=== PATIENT | female | born 1960 | race Caucasian/White ===

== ENCOUNTER → 2016-03-24 | Outpatient (CLI) | payer MEDICARE ==
[2016-03-24 12:29] LABS: Appearance,Urine Clear (Clear); Basophils # (A) 0.1 k/uL (0-0.2); Basophils % (A) 1 %; Bilirubin,Urine Negative (Negative); CH 31.7; CHCM 35.2; Eosinophils # (A) 0.2 k/uL (0-0.7); Eosinophils % (A) 3 %; Glucose,Urine (UA) Negative (Negative); HCT 40.8 % (34.0-46.0); HDW 3.07; HGB 13.9 gm/dL (11.4-16.0); Ketones,Urine Negative (Negative); Leukocyte Esterase,Urine Negative (Negative); Luc # (Auto) 0.08; Luc % (Auto) 1; Lymphocytes # (A) 0.5 k/uL (1.0-4.8); Lymphocytes % (A) 7 %; MCH 30.9 pg (25.0-35.0); MCHC 34.1 g/dL (31.0-37.0); MCV 90.7 fL (80.0-100.0); Mean Platelet Volume 7.1; Monocytes # (A) 0.4 k/uL (0-1.0); Monocytes % (A) 6 %; Neutrophils # (A) 6.1 k/uL (1.3-7.7); Neutrophils % (A) 83 %; Nitrite,Urine Negative (Negative); Protein,Urine Negative (Negative); RDW 13.9 % (11.5-15.5); Specific Gravity,Urine 1.015 (1.001-1.035); UA Billing (MACRO vs. MICRO) CHEM; Urobilinogen,Urine <2.0 mg/dL (<2.0); WBC 7.4 k/uL (3.8-10.6); WBC (Perox) 7.73
== END | disposition home or self-care (01) ==
LOC: LABWHC1 11:33
PROVIDERS: ATTEND Psychiatry & Neurology Neurology
DX: G35 Multiple sclerosis (principal)
CPT/HCPCS: 36415; 81003; 85025; 87086

== ENCOUNTER → 2018-05-22 | Outpatient (CLI) | payer MEDICARE ==
[2018-05-22 11:17] VITALS: BP 152/84; PULSE 59; RESP 18; TEMP 98.4; BMI 47.5
--- NOTE | 2018-05-22 12:07 | P.GSHP ---
History of Present Illness H&P Date: 05/22/18 Chief Complaint: atypia on breast core biopsy Chantel is a 57-year-old white female who presents for breast evaluation. She underwent a bilateral mammogram in November 2017. At that time it was recommended that breast ultrasound be performed, his was done on 02-05-18. At that time she was recommended to undergo a left breast core biopsy of lesion at 4:00, and the evaluation of the area at 12:00 at which time it will be determined if she needed a biopsy of this site as well. The patient also was recommended to undergo a 6 month right breast diagnostic mammogram and ultrasound to evaluate a 12:00 region in the right breast. Core biopsy was performed with the 4:00 region in the left breast which revealed focal flat epithelial atypia. The area at 12:00 was not readdressed. This was the patient's first time to have a 3-D mammogram. She has not felt anything of concern in her breast. She denies any nipple discharge or skin changes. The patient has no complaints of any pain in her breast. The patient recently Cologuard test done which was positive for trace amounts of blood and she is having a colonoscopy done in the near future. Family history: 1. Mother: Breast cancer bilateral 2. father: prostate cancer 3. paternal uncle: cancer ? type Hormonal History: menarche: 11 : none, hysterctomy at 35 done for enlarged uterus, did not take ovaries menopause: hysterectomy at 35 BCP: noen hormones: none Past Surgical History 1. left ankel 2. hysterectoy 3. gallbaldder Past Medical History: 1. multiple sclerosis 2. HTN Social History: smoke: 1 PPD for 20 years stopped 10 years ago alcohol: none drugs: CBD oil at night to sleep - Constitutional Comment: hot flashes - EENT Comment: multiple sclerosis dx. 2003 Eyes: bilateral blurred vision Ears: deny: decreased hearing, tinnitus Ears, nose, mouth and throat: Reports headache, Denies sore throat - Breasts Breasts: bilateral: as per HPI - Cardiovascular Cardiovascular: Reports high blood pressure - Respiratory Respiratory: Denies cough, Denies 7 - Gastrointestinal Comment: having colonoscopy tomorrow secondary to + Cologuard test - Genitourinary (Female) Genitourinary: Denies dysuria, Denies hematuria - Menstruation Menstruation: Reports post hysterectomy - Musculoskeletal Comment: multiple sclerosis left sided weakness since - Integumentary Integumentary: Denies pruritus, Denies rash - Neurological Comment: multiple sclerosis, left sided weakness - Psychiatric Psychiatric: Denies anxiety, Denies depression - Endocrine Endocrine: Reports weight change, Denies fatigue - Hematologic/Lymphatic Comment: motrin on a regular basis - Allergic/Immunologic Comment: none Past Medical History History of Any Multi-Drug Resistant Organisms: None Reported Smoking Status: Never smoker Medications and Allergies Home Medications Medication Instructions Recorded Confirmed Type Ergocalciferol [Vitamin D2] 50,000 unit PO Q7D 12/31/14 01/02/15 History Ibuprofen [Motrin] 800 mg PO BID 12/31/14 01/02/15 History Ranitidine HCl [Zantac] 150 mg PO HS 12/31/14 01/02/15 History traMADol HCl [Ultram] 50 mg PO Q6H PRN 12/31/14 01/02/15 History Alendronate Sodium [Fosamax] 70 mg PO 05/22/18 History Ascorbic Acid [Vitamin C with Renee 500 mg PO 05/22/18 History Hips] Baclofen 10 mg PO TID 05/22/18 05/22/18 History Calcium Citrate 250 mg PO 05/22/18 History Cinnamon Bark [Cinnamon] 500 mg PO 05/22/18 History Dimethyl Fumarate [Tecfidera] 120 mg PO 05/22/18 History Gabapentin [Neurontin] 100 mg PO 05/22/18 History Inulin/Chromium Picolinate [Fiber 1 each PO 05/22/18 History Gummies Chew] Loratadine 10 mg PO 05/22/18 History Meclizine [Antivert] 12.5 mg PO 05/22/18 History Metoprolol Tartrate [Lopressor] 25 mg PO BID 05/22/18 05/22/18 History Modafinil [Provigil] 200 mg PO DAILY 05/22/18 05/22/18 History Nystatin 100,000 Unit/gm Oint 1 applic TOPICAL BID 05/22/18 05/22/18 History [Mycostatin Oint] Triamcinolone 0.5% Cream [Kenalog 1 applic TOPICAL BID 05/22/18 05/22/18 History 0.5% Cream] Wheat Dextrin [Benefiber] 1 each PO 05/22/18 History Allergies Allergy/AdvReac Type Severity Reaction Status Date / Time No Known Allergies Allergy Verified 05/22/18 11:17 Surgical - Exam Vital Signs Temp Pulse Resp BP Pulse Ox 98.4 F 59 L 18 152/84 98 05/22/18 11:10 05/22/18 11:10 05/22/18 11:10 05/22/18 11:10 05/22/18 11:10 BMI 47.6 - General obese - Eyes normal ocular movement - ENT no hearing loss, no congestion - Neck no masses, trachea midline - Respiratory normal respiratory effort, clear to auscultation - Cardiovascular Rhythm: regular Heart Sounds: normal: S1, S2 - Abdomen Abdomen: soft, non tender, no guarding, no rigid, no rebound - Integumentary normal turgor - Neurologic no disoriented, no combative - Musculoskeletal normal gait, normal posture - Psychiatric oriented to time, oriented to person, oriented to place, speech is normal, memory intact breast exam: right breast: Examination reveals fibrocystic changes no dominant masses or nodules of concern Right axilla: No adenopathy of concern Left breast: Examination reveals fibrocystic changes no dominant masses or nodules of concern Left axilla: No adenopathy of concern Results mammogram and ultrasound results and films reviewed with radiology Assessment and Plan Assessment: Impression: 1. Ultrasound-guided core biopsy 4:00 lesion in the left breast epithelial atypia requiring needle localization and excisional biopsy 2. Ultrasound area of question and 12:00 as well as 9 and 10:00 in the left breast requiring repeat left breast ultrasound to ascertain whether a additional biopsy "should be done prior to open surgical biopsy 3. Dense right breast for which a repeat right breast mammogram and ultrasound recommended in 6 months time from that film 4. Hypertension 5. Multiple sclerosis resulting in left-sided weakness and difficulty with ambulation Plan: 1. Repeat left breast ultrasound to evaluate if any additional areas require core biopsy prior to needle local excisional biopsy of area of atypia 4:00 2. Repeat right breast mammogram and ultrasound to be done in July 2018 3. Medical management of medical conditions CC: Dr. Salvador
--- NOTE | 2018-05-22 13:41 | USB ---
Reason for exam: clinical finding. US Breast LT Left complete breast ultrasound includes all four quadrants, the retroareolar region and axilla. Finding demonstrates no cystic or solid lesion seen. These results were verbally communicated with the patient and result sheet given to the patient on 05/22/18. ASSESSMENT: Negative, BI-RAD 1 RECOMMENDATION: Surgical consultation of the left breast. (4 o'clock biopsy lesion with atypia) PRELIMINARY REPORT CALLED AND FAXED TO DR. PEOPLES ON 05/22/18.
== END | disposition home or self-care (01) ==
LOC: WWCWWP 10:58
PROVIDERS: ATTEND Surgery
DX: R92.8 Other abnormal and inconclusive findings on diagnostic imaging of breast (principal)

== ENCOUNTER → 2018-06-30 | Outpatient (CLI) | payer MEDICARE ==
--- NOTE | 2018-06-30 13:11 | MM ---
Reason for exam: additional evaluation requested from prior study. MG Follow Up LT No Charge CC and ML view(s) were taken of the left breast. The breast tissue is heterogeneously dense. This may lower the sensitivity of mammography. Grouped calcifications 4 o'clock posteriorly, new from 10/02/16. They are increasing from 2018, magnifications views recommended. Microclip at 5 o'clock peripheral in location at the site of biopsy proven atypia. ASSESSMENT: Incomplete: need additional imaging evaluation, BI-RAD 0 RECOMMENDATION: Special view mammogram of the left breast.
--- NOTE | 2018-07-01 08:08 | MM ---
Reason for exam: follow-up at short interval from prior study. History: Patient is postmenopausal. Family history of breast cancer in mother at age 60. Benign stereotactic core biopsy of the right breast, 2018. Benign ultrasound-guided core biopsy of the left breast, 2018. Taking other hormone for 3 months. Physical Findings: Nurse did not find any significant physical abnormalities on exam. MG 3D Diag Mammo W/Cad RT CC, MLO, and LM view(s) were taken of the right breast. Radiologist: Sagrraio Cortes M.D. Radiologist Prior study comparison: October 02, 2016, mammogram. The breast tissue is heterogeneously dense. This may lower the sensitivity of mammography. Previous mammotome biopsy in the right breast. Elongated nodularity just medial to the retroareolar plane shows some increasing coarse calcifications, possible calcifying fibroadenoma. Ultrasound recommended. These results were verbally communicated with the patient and result sheet given to the patient on 06/30/18. ASSESSMENT: Incomplete: need additional imaging evaluation, BI-RAD 0 RECOMMENDATION: Ultrasound of the right breast. INSERTED BY THE INSPECTOR AUTOMATIC TYPEWRITER: (In addition to the previous findings the bilateral calcifications and left upper outer quadrant posterior depth mass that were described warrant biopsy. This was discussed with the patient at the time of ultrasound biopsy and with Dr. Cunningham who also discussed this with the patient. Alternatively 4 site needle localization could be done.) MTDD
--- NOTE | 2018-07-01 08:11 | USB ---
Reason for exam: additional evaluation requested from abnormal screening. History: Patient is postmenopausal. Family history of breast cancer in mother at age 60. Benign stereotactic core biopsy of the right breast, 2018. Benign ultrasound-guided core biopsy of the left breast, 2018. Taking other hormone for 3 months. US Breast RT Right complete breast ultrasound includes all four quadrants, the retroareolar region and axilla. Finding demonstrates a 0.4 x 0.4 x 0.2cm oval, cystic lesion at 12 o'clock, a 0.4 x 0.3 x 0.2cm oval, cystic lesion at 1 o'clock and a 0.7 x 0.4 x 0.2cm solid lesion at 7 o'clock elonged, may represent a lymph node, but given the atypia on the other side, biopsy recommended. May correspond to the mammographic finding. Correlate after clip placement. These results were verbally communicated with the patient and result sheet given to the patient on 06/30/18. ASSESSMENT: Suspicious, BI-RAD 4 RECOMMENDATION: Ultrasound core biopsy of the right breast. Called with mammographic findings and has scheduled an appointment for the patient for 07/04/18 at 12:[address] Cunningham. Biopsy scheduled for 07/01/18 at 8:00. PRELIMINARY REPORT CALLED AND FAXED TO DR. CUNNINGHAM ON 06/30/18. [facility]
== END | disposition home or self-care (01) ==
LOC: RADMAMWWP 09:12
PROVIDERS: ATTEND Surgery
DX: R92.8 Other abnormal and inconclusive findings on diagnostic imaging of breast (principal)
CPT/HCPCS: 77065; 76641; G0279; 77061

== ENCOUNTER → 2018-07-01 | Day surgery (SDC) | payer MEDICARE ==
[2018-07-01 07:40] VITALS: RESP 16; TEMP 97.7; BMI 104.9
[2018-07-01 10:26] VITALS: BP 145/83; PULSE 61
--- NOTE | 2018-07-01 11:29 | MM ---
Reason for exam: additional evaluation requested from abnormal screening. Last mammogram was performed less than 1 month ago. History: Patient is postmenopausal. Family history of breast cancer in mother at age 60. Benign stereotactic core biopsy of the right breast, 2018. Benign ultrasound-guided core biopsy of the left breast, 2018. Taking other hormone for 3 months. MG Diagnostic Mammo RT Wo CAD CC and LM view(s) were taken of the right breast. Prior study comparison: June 30, 2018, left breast MG follow up LT no charge. June 30, 2018, right breast MG 3d diag mammo w/cad RT. The breast tissue is heterogeneously dense. This may lower the sensitivity of mammography. There are presistent lower inner quadrant middle depth calcifications associated with a mass, increased from priors. Ribbon biopsy marker now noted, post biopsy. ASSESSMENT: Suspicious, BI-RAD 4 RECOMMENDATION: Stereotactic core biopsy of both breasts. (x 3, one on the right, two on the left)
--- NOTE | 2018-07-02 08:44 | USB ---
EXAMINATION TYPE: US biopsy breast VAD RT, MG diagnostic mammo RT wo CAD DATE OF EXAM: 07/01/2018 CLINICAL HISTORY: R92.8 Abnormal Mammogram. TECHNIQUE: Ultrasound guided core biopsy of right breast. COMPARISON: In department exams an outside exams dating back to 02/05/2018 FINDINGS: The procedure of ultrasound guided core biopsy was explained to the patient. Benefits, alternatives, and risks were discussed. An informed consent was then obtained. Preprocedural timeout was performed. The patient was placed in supine positioning for imaging and for the procedure. The overlying skin was prepped and draped in usual sterile fashion. 10 cc of 1% lidocaine buffered with bicarbonate was used as anesthetic into the skin and subcutaneous tissue up to 0.7 x 0.4 x 0.2 cm solid mass at the 7:00 position, possibly an intramammary lymph node. Under ultrasound guidance, a 12-gauge vacuum assisted biopsy gun device was used to obtain 4 core samples. Following this, a ribbon-shaped biopsy marker was left directly adjacent to the mass. The patient tolerated the procedure well without any immediate complication. The patient was kept in the radiology department for short stay after the procedure and then discharged home in stable condition. IMPRESSION: Successful, uncomplicated ultrasound guided core biopsy of the 0.7 x 0.4 x 0.2 cm solid mass at the 7:00 position in the right breast, full pathology results to follow. Additionally discussion was had with the patient directly regarding the patient's diagnostic mammogram of the same date prior to the ultrasound guided biopsy and also with Dr. Chavo Jasso who communicated the results and recommendations. Again recommendation is for either 3 site bilateral stereotactic guided biopsy (2 in the left and one on the right regarding bilateral calcifications and left breast posterior depth mass) versus 4 site needle localization. Pathology Results: Benign RIGHT BREAST, NEEDLE CORE BIOPSIES: Fibrocystic spectrum changes and pseudoangiomatous hyperplasia. Recommendation Follow up ultrasound of the right breast in 6 months. ROXANA
== END | disposition home or self-care (01) ==
LOC: RADUSWWP 06:34
PROVIDERS: ATTEND Surgery
DX: N62 Hypertrophy of breast (principal); Z80.3 Family history of malignant neoplasm of breast; Z78.0 Asymptomatic menopausal state
CPT/HCPCS: 88305; 77065; 19083; A4648; J2001

== ENCOUNTER → 2018-07-01 | Outpatient (CLI) | payer MEDICARE ==
--- NOTE | 2018-07-01 10:09 | P.PN ---
Progress Note - Text Progress Note Date: 07/01/18 Further radiographic workup on Chantel revealed microcalcifications of concern in both breast as well as posterior on the left an additional lesion which is BIRADS 5. The patient underwent an ultrasound core biopsy of the lesion on the right breast today. It is recommended she undergo stereo biopsy of both areas of microcalcification in both the right and left breasts. She has multiple sclerosis and is unable to ambulate and get onto the stereotactic table here. It was therefore recommended that the stereotactic biopsy for microcalcifications be performed at [facility]. We are trying to help her with transportation at this time. The posterior lesion in the left breast is felt to be too far posterior to do stereotactically and was not seen on ultrasound. It is therefore recommended that needle localization of this area be performed. Impression: 1. Epithelial atypia left breast 2. Posterior lesion on mammogram suspicious BIRADS 5 needs needle local and excisional biopsy 3. Bilateral microcalcifications stereotactic core biopsy of these areas 4. Ultrasound core biopsy - Right breast awaiting results Plan: 1. Patient to follow-up after stereotactic core biopsy of both right and left breast lesion 2. Needle local excisional biopsy of 2 areas in the left breast that which is posterior as well as the area of epithelial atypia 3. Await results of bilateral breast stereotactic core biopsies and ultrasound core biopsy of the right breast CC: Dr. Salvador
--- NOTE | 2018-07-01 11:14 | MM ---
Reason for exam: additional evaluation requested from abnormal screening. Last mammogram was performed less than 1 month ago. History: Patient is postmenopausal. Family history of breast cancer in mother at age 60. Benign stereotactic core biopsy of the right breast, 2018. Benign ultrasound-guided core biopsy of the left breast, 2018. Taking other hormone for 3 months. MG Work Up Mamm w CAD LT CC with magnification and ML with magnification view(s) were taken of the left breast. Prior study comparison: June 30, 2018, left breast MG follow up LT no charge. The breast tissue is heterogeneously dense. This may lower the sensitivity of mammography. There is a 7mm group of calcifications in the left lower outer quadrant at posterior depth that are coarse heterogenous, stereotactic biopsy recommended. Also seen on CC magnification and MLO is a 8mm spiculated mass in the upper outer quadrant at posterior depth 2cm posterior to the calcifications. Ultrasound will be performed. Increasing right upper inner quadrant calcifications with associated 9mm mass, magnification views. These results were verbally communicated with the patient and result sheet given to the patient on 07/01/18. ASSESSMENT: Incomplete: need additional imaging evaluation, BI-RAD 0 RECOMMENDATION: Special view mammogram. (right magnification views) Ultrasound of the left breast. (upper outer quadrant)
--- NOTE | 2018-07-01 11:17 | USB ---
Reason for exam: additional evaluation requested from abnormal screening. History: Patient is postmenopausal. Family history of breast cancer in mother at age 60. Benign stereotactic core biopsy of the right breast, 2018. Benign ultrasound-guided core biopsy of the left breast, 2018. Taking other hormone for 3 months. US Breast Workup Limited LT Left limited breast ultrasound including focal area of concern, retroareolar and axilla demonstrates no convincing correlate to the mammographic mass. Stereo biopsy recommended on the left for calcifications and mass (2 sites) and for the calcifications of the right. These results were verbally communicated with the patient and result sheet given to the patient on 07/01/18. ASSESSMENT: Suspicious, BI-RAD 4 RECOMMENDATION: Stereotactic core biopsy of both breasts.
== END | disposition home or self-care (01) ==
LOC: RADMAMWWP 07:11
PROVIDERS: ATTEND Surgery
DX: R92.8 Other abnormal and inconclusive findings on diagnostic imaging of breast (principal)
CPT/HCPCS: 77065

== ENCOUNTER 2018-08-05 07:45 | Day surgery (SDC) | payer MEDICARE ==
[2018-07-31 10:39] VITALS: BMI 47.5
[~2018-08-05 07:45] MED LIST: HEPARIN SODIUM,PORCINE 5,000 UNIT/ML 1 ML VIAL SQ ONE; Pre Op ABX Message 1 EACH MISC MISCELLANE ONE
[2018-08-05] MEDS ORDERED: ALPRAZolam 0.5 MG TAB PO STA (08:17)
[2018-08-05] MEDS ORDERED: LIDOCAINE 1% INJ 10MG/ML (20 ML MDV) SQ ONE ×2 (09:03→10:21)
[2018-08-05] MEDS ORDERED: DEXAMETHASONE SOD PHOSPHATE 10 MG/ML 1 ML VIAL IV ONE (09:46)
[2018-08-05] MEDS ORDERED: LACTATED RINGERS 1,000 ML IV SCH (09:46)
[2018-08-05] MEDS ORDERED: LIDOCAINE 1% 20 ML VIAL (10MG/ML) FOR IV START INTRADERMA PRN (09:46)
[2018-08-05] MEDS ORDERED: SCOPOLAMINE 1.5MG/72HR PATCH TRANSDERM ONE (09:46)
[2018-08-05] MEDS ORDERED: MIDAZOLAM 2 MG/2 ML VIAL IV PRN (09:46)
[2018-08-05] MEDS ORDERED: ONDANSETRON 4 MG/2 ML VIAL IVP ONE (09:46)
[2018-08-05] MEDS ORDERED: HEPARIN SODIUM,PORCINE 5,000 UNIT/ML 1 ML VIAL SQ ONE (09:49)
[2018-08-05] MEDS ORDERED: LIDOCAINE 1% INJ 10MG/ML (20 ML MDV) ONE (11:14)
[2018-08-05] MEDS ORDERED: PROPOFOL 10 MG/ML 20 ML VIAL IV ONE (11:14)
[2018-08-05] MEDS ORDERED: HYDROmorphone (PF) 1 MG/ML ONE (11:14)
[2018-08-05] MEDS ORDERED: KETAMINE 10 MG/ML 20 ML VIAL ONE (11:14)
[2018-08-05] MEDS ORDERED: MIDAZOLAM 2 MG/2 ML VIAL ONE (11:14)
[2018-08-05] MEDS ORDERED: fentaNYL (PF) 50 MCG/ML 2 ML AMP ONE (11:14)
[2018-08-05] MEDS ORDERED: LACTATED RINGERS 1,000 ML IV ONE (13:47)
--- NOTE | 2018-08-05 13:56 | MM ---
EXAMINATION TYPE: MG pre op needle loc LT, MG pre op needle loc RT, MG pre op needle loc LT, MG pre op needle loc LT, MG surgical specimen LT, MG surgical specimen LT, MG surgical specimen RT, MG surgical specimen LT DATE OF EXAM: 08/05/2018 COMPARISON: Prior mammograms July 01, 2018 and older mammograms. CLINICAL HISTORY: History of biopsy proven high risk lesion or atypia left breast with new abnormal mammogram TECHNIQUE: Needle localization with wire placement and surgical excision of single area of concern in the right breast. Needle localization with wire placement and surgical excision of 3 areas of concern in the left breast. FINDINGS: The procedure of needle localization with wire placement and than surgical excision was explained to the patient. Benefits, alternatives, and risks were discussed. An informed consent was then obtained. Patient has history of multiple sclerosis and because of this inferior approach could not be utilized. The overlying skin was prepped and draped in usual sterile fashion. Lidocaine was used as anesthetic into the skin and subcutaneous tissue up to the level of area of concern. A 7 cm needle was used on the right side via medial approach. Subsequent 90 degrees mammogram show the needle to be in satisfactory position relative to the targeted area. At this point, wire was placed and the needle was withdrawn. The wire was fixed to patient's skin. Images were marked for surgeon. Left breast is then targeted. The overlying skin was prepped and draped in usual sterile fashion. Lidocaine was used as anesthetic into the skin and subcutaneous tissue up to the level of area of concern. A 7 cm needle was first utilized for 2 lesions on the left side via lateral approach. These needles were not long enough. At this point, 9 cm lesions were used from cranial approach. Wires were satisfactory relative to areas of concern, anterior needle group of calcifications seen posterior needle focal density. At this point, wire was placed and the needle was withdrawn. The wire was fixed to patient's skin. Images were marked for surgeon. Case is reviewed with surgeon. Biopsy clip of atypia noted by surgeon also needs to be localized. Patient returns for this procedure. Lidocaine is used as anesthetic into the skin and subcutaneous tissue. A 7 cm needle was utilized via lateral approach. After satisfactory positioning needle is withdrawn and wire is in place. At this point, wire was placed and the needle was withdrawn. The wire was fixed to patient's skin. Images were again marked for surgeon. Case is reviewed prior to surgical excision. The patient tolerated the procedure well without any immediate complication. The patient was kept in the radiology department for short stay after the procedure and then taken to surgery for surgical excision. Targeted nodule with calcification and wire are identified in right sided specimen mammogram. Targeted calcifications, biopsy clip, and nodule along with wires are identified in left-sided specimen mammograms. The patient was kept in hospital for short stay after the procedure and then discharged home in stable condition. IMPRESSION: Successful, uncomplicated needle localization with wire placement and surgical excision of areas of concern in the bilateral breasts, full pathology results to follow. Low to intermediate index of suspicion right breast lesion. Low index of suspicion left breast calcification. Low to intermediate index of suspicion left breast biopsy clip. Intermediate index of suspicion left breast lesion. Pathology Results: Malignant A. RIGHT BREAST WITH MARGINS, LUMPECTOMY: Lobular neoplasia (ALH/LGLCIS) in a background of fibrocystic and proliferative breast lesions (usual type duct hyperplasia with intraductal papillomatosis). Intraductal mineralizations are identified. B. INFERIOR LEFT BREAST LESION WITH MARGINS, LUMPECTOMY: Prior breast biopsy cavity surrounded by fibrocystic spectrum changes including sclerosing adenosis and mild intraductal hyperplasia. Intraductal mineralizations are identified focally. C. POSTERIOR LEFT BREAST LESION, NEEDLE LOCALIZATION BIOPSY: 11 x 10 x 8 mm intermediate grade (Adryan Grade: II of III) infiltrating duct carcinoma, 3.5 mm away from the nearest blue inked margin of excision. See Surgical Pathology Cancer Case Summary. ADDENDUM REPORT C. POSTERIOR LEFT BREAST LESION, NEEDLE LOCALIZATION BIOPSY: Infiltrating ductal carcinoma, intermediate grade. Recommendation Surgical consult of both breasts. Left breast posterior upper outer quadrant: surgical excision/medical therapy. Left lower outer quadrant prior biopsy: cavity negative. Right breast: surgical management, can be followed with annual MRI. BOOMD
--- NOTE | 2018-08-05 14:02 | P.OP ---
Date of Procedure: 08/05/18 Preoperative Diagnosis: Epithelial atypia left breast, nodule of concern left breast, microcalcifications of concern in the left breast, microcalcifications of concern right breast Postoperative Diagnosis: Same Procedure(s) Performed: Localization 3 left breast, albuterol localization 1 right breast, excisional biopsy in operating room Anesthesia: PATRICK Surgeon: Ai Cunningham Estimated Blood Loss (ml): 25 IV fluids (ml): 900 Condition: other (Breast tissue was insufflated right breast, 3 sites left breast) Disposition: PACU Indications for Procedure: The patient is a 49-year-old white female with multiple sclerosis. She had a core biopsy of area of concern in the left breast which revealed epithelial atypia. Further evaluation of the radiographs revealed 2 additional areas in the left breast and one in the right breast of concern. The patient is unable to be brought onto a stereotactic core biopsy table, and she was unable to have transportation to an upright stereotactic core table. The options therefore were needle localization and excision in the operating room. Was necessary for the patient from the area of a papillary atypia excised and therefore she opted to have all the areas excised in the operating room. Patient chose to have this performed. Operative Findings: Microcalcifications right and left breasts, nodular area left breast Description of Procedure: The patient initially went to the radiology department microcalcifications of concern were localized in the right breast. The second area of microcalcification was localized in the left breast as well as a nodule. Also the clip which of atypia had been biopsied with cold biopsy was localized. Following localization the patient was brought to the operating room. The patient was placed on the operating table and following induction of general anesthesia the right and left breast were prepped. The right breast was approached initially. A circumareolar incision was made and carried down to the breast tissue. This was dissected to the area of the shaft of the needle and the tissue was grasped using an Allis clamp. Surrounding tissue was excised. Was evaluated for hemostasis. Titanium clips were placed. The deep tissues were closed using 3-0 Vicryl suture. The specimen was painted for orientation. Radiograph of the specimen revealed that the area of concern had been removed. The skin was closed using 4-0 Monocryl. Gloves and instruments were changed to approach the left side. The more anterior clip was approached initially. Circumareolar incision was made and carried down to the breast tissue. Shaft of the needle was identified and grasped using an Allis clamp. Surrounding tissue was excised. The specimen was painted for orientation. Radiograph the specimen revealed the area of concern had been removed. The deep tissues were closed with a 3-0 Vicryl suture after placement of titanium clips. The skin was closed using a 4-0 Monocryl. The posterior lesions were approached through the same incision, etc. to the circumareolar incision. Circumflex coronary incision was performed between the 2 needles. The tissue was grasped using an Allis clamp. Surrounding tissue was excised using electrocautery device as well as the Harmonic scalpel. Dissection. This was actually down into the axillary tissue. After the specimen had been removed was painted for orientation. X-ray revealed that the area of concern about removed. Was evaluated for hemostasis. Deep tissues were closed using 3-0 Vicryl suture after titanium clips were then placed. The skin was closed using a 4-0 Monocryl. Patient tolerated the procedure in stable condition. Please note that the lesion was removed from the right breast with microcalcifications, lesions were removed from the left breast they included the following #1 clip which had had an area of epithelial atypia #2. Microcalcifications number through the posterior nodular area. It should be noted that the posterior lesions of the left breast actually extended into the axillary tissue. The patient tolerated the procedure well all instrument and sponge counts were correct at the end of the case.
--- NOTE | 2018-08-05 14:03 | P.DS ---
Providers Attending physician: Ai Cunningham Primary care physician: Eduardo Salvador Plan - Discharge Summary Discharge Rx Participant: Yes New Discharge Prescriptions: No Action Ergocalciferol [Vitamin D2] 50,000 unit PO PECK traMADol HCl [Ultram] 50 mg PO TID PRN PRN Reason: Pain Ranitidine HCl [Zantac] 150 mg PO HS Ibuprofen [Motrin] 800 mg PO TID Baclofen 10 mg PO TID Nystatin 100,000 Unit/gm Oint [Mycostatin Oint] 1 applic TOPICAL BID PRN PRN Reason: Rash Metoprolol Tartrate [Lopressor] 25 mg PO BID Wheat Dextrin [Benefiber] 1 each PO DAILY Gabapentin [Neurontin] 100 mg PO QID Cinnamon Bark [Cinnamon] 500 mg PO DAILY Calcium Citrate 500 mg PO DAILY Ascorbic Acid [Vitamin C with Renee Hips] 500 mg PO DAILY Alendronate Sodium [Fosamax] 70 mg PO PECK Multivitamin [Multivitamins Adult Gummies] 2 each PO DAILY Fish Oil(Dose Unknown) 1 cap PO DAILY Cannabidiol (Cbd) Extract [Epidiolex] 6 drops PO HS PRN PRN Reason: Pain Modafinil [Provigil] 200 mg PO DAILY Dimethyl Fumarate [Tecfidera] 120 mg PO BID Triamcinolone 0.5% Cream [Kenalog 0.5% Cream] 1 applic TOPICAL DAILY PRN PRN Reason: Rash Meclizine HCl 12.5 mg PO DAILY PRN PRN Reason: Vertigo Pantoprazole Sodium [Protonix] 20 mg PO DAILY Discharge Medication List Ergocalciferol [Vitamin D2] 50,000 unit PO PECK 12/31/14 [History] Ibuprofen [Motrin] 800 mg PO TID 12/31/14 [History] Ranitidine HCl [Zantac] 150 mg PO HS 12/31/14 [History] traMADol HCl [Ultram] 50 mg PO TID PRN 12/31/14 [History] Ascorbic Acid [Vitamin C with Renee Hips] 500 mg PO DAILY 05/22/18 [History] Baclofen 10 mg PO TID 05/22/18 [History] Calcium Citrate 500 mg PO DAILY 05/22/18 [History] Cinnamon Bark [Cinnamon] 500 mg PO DAILY 05/22/18 [History] Gabapentin [Neurontin] 100 mg PO QID 05/22/18 [History] Metoprolol Tartrate [Lopressor] 25 mg PO BID 05/22/18 [History] Nystatin 100,000 Unit/gm Oint [Mycostatin Oint] 1 applic TOPICAL BID PRN 05/22/18 [History] Wheat Dextrin [Benefiber] 1 each PO DAILY 05/22/18 [History] Alendronate Sodium [Fosamax] 70 mg PO PECK 06/26/18 [History] Cannabidiol (Cbd) Extract [Epidiolex] 6 drops PO HS PRN 06/26/18 [History] Fish Oil(Dose Unknown) 1 cap PO DAILY 06/26/18 [History] Multivitamin [Multivitamins Adult Gummies] 2 each PO DAILY 06/26/18 [History] Dimethyl Fumarate [Tecfidera] 120 mg PO BID 07/31/18 [History] Meclizine HCl 12.5 mg PO DAILY PRN 07/31/18 [History] Modafinil [Provigil] 200 mg PO DAILY 07/31/18 [History] Pantoprazole Sodium [Protonix] 20 mg PO DAILY 07/31/18 [History] Triamcinolone 0.5% Cream [Kenalog 0.5% Cream] 1 applic TOPICAL DAILY PRN 07/31/18 [History] Follow up Appointment(s)/Referral(s): Ai Cunningham MD [STAFF PHYSICIAN] - 1 Week Activity/Diet/Wound Care/Special Instructions: may shower after 48 hours wear bra at all times if not showering Discharge Disposition: HOME SELF-CARE
[2018-08-05 14:14] VITALS: TEMP 97
[2018-08-05 14:19] VITALS: RESP 16
[2018-08-05] MEDS ORDERED: traMADol 50 MG TAB PO ONE (15:32)
[2018-08-05 15:42] VITALS: PULSE 87
[2018-08-05 15:57] VITALS: BP 126/78
== END 2018-08-05 16:22 | disposition home or self-care (01) ==
LOC: OR 07:45
PROVIDERS: ATTEND Surgery
DX: C50.912 Malignant neoplasm of unspecified site of left female breast (principal); D24.1 Benign neoplasm of right breast; N60.22 Fibroadenosis of left breast; N60.11 Diffuse cystic mastopathy of right breast; N60.12 Diffuse cystic mastopathy of left breast; Z17.0 Estrogen receptor positive status [ER+]; G35 Multiple sclerosis; I10 Essential (primary) hypertension; K21.9 Gastro-esophageal reflux disease without esophagitis; M79.7 Fibromyalgia; R00.2 Palpitations; Z87.891 Personal history of nicotine dependence; Z99.3 Dependence on wheelchair; Z79.1 Long term (current) use of non-steroidal anti-inflammatories (NSAID); Z79.891 Long term (current) use of opiate analgesic; Z79.899 Other long term (current) drug therapy; Z90.710 Acquired absence of both cervix and uterus; Z90.49 Acquired absence of other specified parts of digestive tract; Z80.3 Family history of malignant neoplasm of breast; Z80.42 Family history of malignant neoplasm of prostate
CPT/HCPCS: 19125; 19126; 19281; 19282; 88342; 88307; 88341; 76098 ×2; J2250; J1644; J1100; J2405; J2001; J3010; J1170; J2704

== ENCOUNTER → 2018-08-14 | Outpatient (CLI) | payer MEDICARE ==
[2018-08-14 12:51] VITALS: BP 141/82; PULSE 73; RESP 20; TEMP 98.3; BMI 45.4
--- NOTE | 2018-08-14 14:22 | P.GSHP ---
History of Present Illness H&P Date: 08/14/18 Chief Complaint: Left breast cancer The patient is a 57-year-old white female who initially presented for breast evaluation secondary to a radiographic abnormality in the left breast. Core biopsy was obtained and revealed epithelial atypia. However further workup revealed a posterior BIRADS 5 lesion in the left breast which was not seen on ultrasound, any areas of microcalcification of both breasts which were of concern. The patient subsequently underwent a bilateral needle localization breast biopsy. There were 3 areas biopsied in the left breast and one area in the right breast. The reason for operative biopsy was secondary to the fact that the patient has multiple sclerosis was unable to lay on the stereotactic biopsy table. We will tentatively schedule this for her at [facility] however she was unable to obtain transportation. She therefore opted for needle localization and excisional biopsy of the areas of concern in the left breast and one area in the right breast. 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 The second area in the left breast has fibrocystic changes. The area of malignancy was completely exc ised. The patient however is not a candidate for radiation therapy secondary to her MS and difficulty in transportation and being positioned for radiation to be performed. She was given the option of meeting with the radiation oncologist to discuss this however she did not wish to consider radiation therapy. Family history: 1. Medical: Breast cancer bilaterally 2. Father: Prostate cancer 2. Paternal uncle colon cancer uncertain of the type Hormonal history: Menarche: 11 Pregnancies: None, hysterectomy at 35 for enlarged uterus did not take her ovaries Menopause: Hysterectomy at 35 control pills: Negative Hormones: Negative Past surgical history: Left ankle Hysterectomy Cholecystectomy Past medical history: 1. Multiple sclerosis 2. Hypertension Social history: Smoke: Stopped 10 years ago Alcohol: Negative Drugs: CBD at night to sleep - Constitutional Comment: Multiple sclerosis diagnosed in 2002 Hot flashes - EENT Eyes: bilateral blurred vision, denies pain Ears: deny: decreased hearing, tinnitus Ears, nose, mouth and throat: Reports headache - Breasts Breasts: bilateral: as per HPI - Cardiovascular Cardiovascular: Reports high blood pressure - Respiratory Respiratory: Denies cough, Denies 7 - Gastrointestinal Comment: Recent colonoscopy awaiting results - Genitourinary (Female) Genitourinary: Denies dysuria, Denies hematuria - Menstruation Menstruation: Reports post hysterectomy - Musculoskeletal Comment: Multiple sclerosis, left-sided weakness - Integumentary Integumentary: Denies pruritus, Denies rash - Neurological Comment: Multiple sclerosis left-sided weakness - Psychiatric Psychiatric: Denies anxiety, Denies depression - Endocrine Endocrine: Reports weight change, Denies fatigue - Hematologic/Lymphatic Comment: Uses Motrin - Allergic/Immunologic Allergic/Immunologic: Reports as per HPI Past Medical History Past Medical History: Fibromyalgia, GERD/Reflux, Hypertension, Musculoskeletal Disorder Additional Past Medical History / Comment(s): MS, palpitations, History of Any Multi-Drug Resistant Organisms: None Reported Past Surgical History: Cholecystectomy, Hysterectomy, Orthopedic Surgery Additional Past Surgical History / Comment(s): ORIF left ankle, left breast biopsy Past Anesthesia/Blood Transfusion Reactions: No Reported Reaction Past Psychological History: No Psychological Hx Reported Smoking Status: Former smoker Past Alcohol Use History: None Reported Additional Past Alcohol Use History / Comment(s): quit smoking 20 yrs ago, smoked since age 17, 1/2-1 PPD Past Drug Use History: Marijuana Additional Drug Use History / Comment(s): CBD oil - Past Family History Mother Family Medical History: Cancer Additional Family Medical History / Comment(s): breast Father Family Medical History: Cancer Additional Family Medical History / Comment(s): prostate Medications and Allergies Home Medications Medication Instructions Recorded Confirmed Type Ergocalciferol [Vitamin D2] 50,000 unit PO PECK 12/31/14 08/14/18 History Ibuprofen [Motrin] 800 mg PO TID 12/31/14 08/14/18 History Ranitidine HCl [Zantac] 150 mg PO HS 12/31/14 08/14/18 History traMADol HCl [Ultram] 50 mg PO TID PRN 12/31/14 08/14/18 History Ascorbic Acid [Vitamin C with Renee 500 mg PO DAILY 05/22/18 08/14/18 History Hips] Baclofen 10 mg PO TID 05/22/18 08/14/18 History Calcium Citrate 500 mg PO DAILY 05/22/18 08/14/18 History Cinnamon Bark [Cinnamon] 500 mg PO DAILY 05/22/18 08/14/18 History Gabapentin [Neurontin] 100 mg PO QID 05/22/18 08/14/18 History Metoprolol Tartrate [Lopressor] 25 mg PO BID 05/22/18 08/14/18 History Nystatin 100,000 Unit/gm Oint 1 applic TOPICAL BID PRN 05/22/18 08/14/18 History [Mycostatin Oint] Wheat Dextrin [Benefiber] 1 each PO DAILY 05/22/18 08/14/18 History Alendronate Sodium [Fosamax] 70 mg PO PECK 06/26/18 08/14/18 History Cannabidiol (Cbd) Extract 6 drops PO HS PRN 06/26/18 08/14/18 History [Epidiolex] Fish Oil(Dose Unknown) 1 cap PO DAILY 06/26/18 08/14/18 History Multivitamin [Multivitamins Adult 2 each PO DAILY 06/26/18 08/14/18 History Gummies] Dimethyl Fumarate [Tecfidera] 120 mg PO BID 07/31/18 08/14/18 History Meclizine HCl 12.5 mg PO DAILY PRN 07/31/18 08/14/18 History Modafinil [Provigil] 200 mg PO DAILY 07/31/18 08/14/18 History Pantoprazole Sodium [Protonix] 20 mg PO DAILY 07/31/18 08/14/18 History Triamcinolone 0.5% Cream [Kenalog 1 applic TOPICAL DAILY PRN 07/31/18 08/14/18 History 0.5% Cream] Allergies Allergy/AdvReac Type Severity Reaction Status Date / Time No Known Allergies Allergy Verified 08/14/18 12:47 Surgical - Exam Vital Signs Temp Pulse Resp BP Pulse Ox 98.3 F 73 20 141/82 96 08/14/18 12:48 08/14/18 12:48 08/14/18 12:48 08/14/18 12:48 08/14/18 12:48 BMI 45.4 - General obese - Eyes normal ocular movement - ENT no hearing loss, no congestion - Neck no masses, trachea midline - Respiratory Decreased breath sounds at the bases - Cardiovascular Rhythm: regular Heart Sounds: normal: S1, S2 - Abdomen Abdomen: soft, non tender, no guarding, no rigid, no rebound - Integumentary normal turgor - Neurologic no disoriented, no combative - Musculoskeletal Wheelchair bound - Psychiatric oriented to time, oriented to person, oriented to place, speech is normal, memory intact Breast examination Right breast: mild Ecchymosis at site of biopsy, no hematoma or infection Left breast: Mild ecchymosis at site of biopsy no hematoma or infection Results Pathology results reviewed Assessment and Plan Assessment: Impression: 1. Stage IA left breast cancer 2. Lobular carcinoma in situ right breast 3. Family history of breast cancer 4. Multiple sclerosis 5. Hypertension Surgical options were discussed with the patient. Options included sentinel node biopsy, possible axillary node dissection, radiation therapy; mastectomy sentinel node biopsy possible axillary node dissection, +/- reconstruction: Hormonal therapy with no further surgical intervention. The patient wishes to undergo bilateral mastectomy with left breast sentinel node biopsy possible axillary node dissection. She is not interested in reconstruction. She understands the risks and benefits and wishes to proceed. Plan: 1. Discussion with radiation oncology 2. Presentation at tumor board 3. Medical clearance from Dr. Ammon oscar and Dr. Vega 4. Followed by this cleared bilateral mastectomy with left sentinel node biopsy possible axillary node dissection CC: Dr. Salvador
== END ==
LOC: WWCWWP 12:19
PROVIDERS: ATTEND Surgery
DX: Z53.9 Procedure and treatment not carried out, unspecified reason (principal)

== ENCOUNTER 2018-08-26 09:26 | Inpatient (IN) | payer MEDICARE ==
[~2018-08-26 09:26] MED LIST changes: +DEXAMETHASONE SOD PHOSPHATE 10 MG/ML 1 ML VIAL IV ONE; +LACTATED RINGERS 1,000 ML IV SCH; +MIDAZOLAM 2 MG/2 ML VIAL IV PRN; +ONDANSETRON 4 MG/2 ML VIAL IVP ONE; +SCOPOLAMINE 1.5MG/72HR PATCH TRANSDERM ONE
[2018-08-26] MEDS ORDERED: LIDOCAINE 1% 20 ML VIAL (10MG/ML) FOR IV START INTRADERMA ONE (10:39)
--- NOTE | 2018-08-26 12:17 | NM ---
EXAMINATION TYPE: NM sentinel node injection DATE OF EXAM: 08/26/2018 COMPARISON: Exams dating back to 07/01/2018 HISTORY: Left breast cancer TECHNIQUE AND FINDINGS: The procedure of sentinel lymph node injection was explained to the patient. The benefits, alternatives, and risks were discussed. An informed consent was then obtained. Overlying skin is cleaned with sterile alcohol. Following this, 492 uCi [id number] Tilmanocept was inject ed in the upper outer aspect of the left nipple intradermally. The patient tolerated the procedure well without any immediate complication. The patient was kept in the radiology department for short stay after the procedure and then taken to surgery for surgical p rocedure what is presumed intraoperative gamma probe will be used for sentinel lymph node detection. IMPRESSION: Left breast radiotracer injection for sentinel node localization as above.
[2018-08-26] MEDS ORDERED: HEPARIN SODIUM,PORCINE 5,000 UNIT/ML 1 ML VIAL SQ ONE (14:06)
--- NOTE | 2018-08-26 14:07 | P.NAPBC ---
NAPBC Queries - NAPBC Queries Was patient's case review presented at [facility] tumor board? If no, comment.: Yes Was patient's pathology reviewed at [facility]? If no, comment.: Yes Was breast conservation surgery offered? If no, comment.: Yes Was sentinel node biopsy offered? If no, comment.: Yes Was diagnosis confirmed by percutaneous core biopsy? If no, comment.: Yes Is patient mastectomy patient?: Yes Was a preop referral to reconstructive surgeon offered?: Yes Clinical Stage: Stage IA
[2018-08-26] MEDS ORDERED: fentaNYL (PF) 50 MCG/ML 2 ML AMP ONE (14:27)
[2018-08-26] MEDS ORDERED: MIDAZOLAM 2 MG/2 ML VIAL ONE (14:27)
[2018-08-26] MEDS ORDERED: HYDROmorphone (PF) 1 MG/ML ONE (14:27)
[2018-08-26] MEDS ORDERED: ROCURONIUM BROMIDE 10 MG/ML 10 ML VIAL IV ONE (14:27)
[2018-08-26] MEDS ORDERED: PROPOFOL 10 MG/ML 20 ML VIAL IV ONE (14:27)
[2018-08-26] MEDS ORDERED: LIDOCAINE 1% INJ 10MG/ML (20 ML MDV) ONE (14:27)
[2018-08-26] MEDS ORDERED: ONDANSETRON 4 MG/2 ML VIAL IVP PRN (17:43)
[2018-08-26] MEDS ORDERED: NALOXONE 0.4 MG/ML 1 ML VIAL IV PRN (17:43)
--- NOTE | 2018-08-26 17:43 | P.OP ---
Date of Procedure: 08/26/18 Preoperative Diagnosis: Left breast cancer, right breast lobular carcinoma in situ Postoperative Diagnosis: Same Procedure(s) Performed: Left mastectomy, sentinel node biopsy, right mastectomy Anesthesia: PATRICK Surgeon: Ai Cunningham Estimated Blood Loss (ml): 50 IV fluids (ml): 600 Pathology: other (Bilateral breast, left sentinel node) Condition: stable Disposition: floor Indications for Procedure: Left breast invasive ductal carcinoma, right breast lobular carcinoma in situ Operative Findings: Dense breast tissue Description of Procedure: The patient is a 53-year-old white female with multiple sclerosis. She was diagnosed with left breast invasive ductal carcinoma, right breast lobular carcinoma in situ. In addition she has a strong family history of breast cancer. Secondary to the patient's multiple sclerosis is limited mobility. After discussion with the patient, presentation at tumor board, and discussion with her primary care doctor the patient opted for bilateral mastectomy with left sentinel node biopsy. The risks and benefits of the procedure were discussed with the patient and she is scheduled for the procedure. The patient was taken to the operating room and following induction of anesthesia the left breast was approached initially. Superior and inferior skin flaps were developed. The dissection was carried down to the chest wall. We were careful to maintain hemostasis using the electrocautery device as well as the Harmonic scalpel. The breast was dissected from medial to lateral being careful to maintain hemostasis again using electrocautery device, the Harmonic scalpel, and suture ligating any vessels of concern. Dissection was performed down to the area of the axilla. At the area of the axilla the neoprobe was used to identify radioactive lymph node. A second radioactive count of 11,000 was identified. The surrounding background count was minimal. The lymph node was dissected free using the Harmonic scalpel. This was sent for frozen section evaluation. Frozen section was negative for malignancy. This was well irrigated. Powderized Surgicel was placed in the wound. BRAIN drains were placed. The deep tissues were closed using 3-0 Vicryl suture. The drains were secured with 2-0 nylon suture. The skin was closed with 4-0 Monocryl. At this time all instruments and gowns and gloves were changed and the right side was approached. The right breast superior inferior skin flaps were developed. A marking pen was used to outline the area of the flaps. The skin was scored, and using the electrocautery device the incision of the skin was completed. The superior skin flap was developed. We were careful to use of electrocautery device as well as the Harmonic scalpel to maintain hemostasis. This was carried down to the chest wall. The inferior skin flap was developed in similar fashion. The breast was then dissected from medial to lateral being careful to maintain hemostasis using electrocautery device, the Harmonic scalpel, and suture ligating any vessels of concern. Dissection was carried laterally. The parenchyma was divided using the Harmonic scalpel. Following this the wound was irrigated. 2 BRAIN drains were placed. These were secured using nylon suture. Surgicel and a power fashion was placed. The deep tissues were closed using 3-0 Vicryl suture. The skin was closed using 4-0 Monocryl. This BRAIN drains were secured using nylon suture. The patient tolerated the procedure in stable condition. All instrument and sponge counts were correct at the end of the case. Both breasts and the left axillary node were sent to pathology. The patient tolerated the procedure in stable condition.
[2018-08-26] MEDS: HYDROmorphone 0.5 MG/0.5 ML SYRINGE IVP PRN ×2 (18:10→18:25)
[2018-08-26] MEDS ORDERED: LABETALOL SYRINGE 5 MG/ML IVP ONE (18:45)
[2018-08-26] MEDS ORDERED: LACTATED RINGERS 1,000 ML IV ONE ×2 (18:47)
[2018-08-26 20:03] VITALS: BMI 45.3
[2018-08-26] MEDS: DEXTROSE 5%-0.45% NACL 1,000 ML IV SCH (20:29)
[2018-08-26] MEDS: HYDROmorphone 1 MG/ML 1 ML SYRINGE IV PRN (20:32)
[2018-08-26] MEDS: HEPARIN SODIUM,PORCINE 5,000 UNIT/ML 1 ML VIAL SQ SCH (23:24)
[2018-08-27] MEDS: HYDROmorphone 1 MG/ML 1 ML SYRINGE IV PRN (00:06)
[2018-08-27] MEDS: DEXTROSE 5%-0.45% NACL 1,000 ML IV SCH (03:53)
--- NOTE | 2018-08-27 09:40 | P.PN ---
Subjective Progress Note Date: 08/27/18 Patient is postop day one from bilateral mastectomy with left sentinel node biopsy. Postoperatively the patient is doing well, she is tolerating diet without difficulty. She has been unable to urinate and required straight cath on 2 occasions. She has multiple sclerosis and states that after general an esthesia she sometimes has difficulty with urination. We are awaiting consultation from medicine. Objective - Vital Signs Vital signs: Vital Signs Temp 97.8 F 08/27/18 05:05 Pulse 79 08/27/18 05:05 Resp 16 08/27/18 05:05 BP 120/75 08/27/18 05:05 Pulse Ox 100 08/27/18 05:05 Intake & Output 08/26/18 08/27/18 08/27/18 18:59 06:59 18:59 Intake Total 950 1380 300 Output Total 50 660 55 Balance 900 720 245 Intake: IV 950 100 Intake, IV Titration 800 300 Amount Dextrose 5%-0.45% NaCl 1, 800 300 000 ml @ 100 mls/hr IV . Q10H [facility] Rx#:[id number] Oral 480 Output: Drainage 60 55 Bilateral 60 left chest drain #1 35 left chest drain #2 10 right chest drain #3 10 Urine 600 Straight 600 Estimated Blood Loss 50 Other: Voiding Method Bedpan - Constitutional General appearance: Present: obese - EENT Eyes: Present: EOMI ENT: Present: hearing grossly normal - Respiratory Respiratory: bilateral: CTA - Cardiovascular Rhythm: regular Heart sounds: normal: S1, S2 - Integumentary Integumentary Comment(s): Incision bilateral clean and dry BRAIN output Total from last night was 60 mL today and they were emptied for 55 mL the draina ge is serous in nature Drain #1 35 mL left Drain number to 10 mL left Drain #3 10 mL right Drain #4 minimal right Assessment and Plan Assessment: Impression: 1. Patient postop day #1 bilateral mastectomy with left sentinel node biopsy 2. Patient with multiple sclerosis, states he feels weak 3. Limited mobility, is able to stand and pivot with help 4. Urinary retention 5. Hypertension Plan: 1. Straight cath as needed 2. Up in chair with assistance 3. Change IV to Hep-Lock 4. Await medical consultation 5. Will discharge home with home health care when ready for discharge
[2018-08-27] MEDS: HYDROcodone/APAP 5-325MG 1 EACH TAB PO PRN ×2 (11:23→17:38)
[2018-08-27] MEDS: HEPARIN SODIUM,PORCINE 5,000 UNIT/ML 1 ML VIAL SQ SCH ×2 (11:23→17:38)
[2018-08-27 11:28] LABS: Basophils % (A) 0 %; Eosinophils # (A) 0.1 k/uL (0-0.7); Eosinophils % (A) 1 %; HCT 39.8 % (34.0-46.0); HGB 12.8 gm/dL (11.4-16.0); Lymphocytes # (A) 0.5 k/uL (1.0-4.8); Lymphocytes % (A) 5 %; MCH 29.3 pg (25.0-35.0); MCHC 32.3 g/dL (31.0-37.0); Mean Platelet Volume 6.9; Monocytes # (A) 0.4 k/uL (0-1.0); Monocytes % (A) 5 %; Neutrophils # (A) 8.3 k/uL (1.3-7.7); Neutrophils % (A) 88 %; Platelet Count 215 k/uL (150-450); RBC 4.38 m/uL (3.80-5.40); RDW 15.3 % (11.5-15.5); WBC 9.4 k/uL (3.8-10.6)
[2018-08-27] MEDS ORDERED: traMADol 50 MG TAB PO PRN (12:38)
[2018-08-27] MEDS ORDERED: TRIAMCINOLONE ACET 0.5% CREAM 15 GM TUBE TOPICAL PRN (12:38)
--- NOTE | 2018-08-27 13:27 | P.CONS ---
History of Present Illness - Reason for Consult Consult date: 08/27/18 Medical management - History of Present Illness This is a very pleasant 57 years old white female who presented for bilateral mastectomy with Dr. Chavo todd for abnormal mammograms of the left breast followed by needle localization and an x-ray lesion biopsy of the left breast there are 3 areas were biopsied and the right breast. 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 Patient underwent bilateral mastectomy with by a left sentinel node biopsy on 08/26/2018. She was seen postoperatively today and had arm weakness off and right lower extremity. Patient has a history of multiple sclerosis arm as well as hypertension and is currently on tecfidera . Patient has lost her left upper and lower extremity function from previous MS exacerbation post procedures. Patient can pivot and transfer but is unable to put any weight on the left lower extremity. She does have worsening weakness in the right lower extremity since her previous gallbladder removal in February 2018. Patient is unable to lift her foot. She is wheelchair bound and uses an electric scooter to mobilize. She denies any sensory deficit, facial droop, seizure, dizziness. Patient was last given oral steroids in February after her gallbladder removal. Vitals this morning suggests a temp of 96.3 pulse of 83/blood pressure is 137/64 currently on room air. Patient also had an episode of urinary retention of more than 700 mL and had straight cath yesterday. She is able to empty her bladder normal and had a bowel movement. Her lab evaluation patient has a leukocyte of 9.4 hemoglobin 12.9 platelet 2:15 glucose of 109 potassium 4.7 creatinine 0.6. Neurology consult placed for evaluation of MS exacerbation Review of Systems Constitutional: Denies chills, Denies fever, Denies lethargy, Denies malaise, Denies poor appetite, Denies weakness, Denies weight loss Eyes: denies decreased vision, denies diplopia, denies discharge, denies pain Ears: deny: decreased hearing Ears, nose, mouth and throat: Denies dental pain, Denies headache, Denies nasal discharge, Denies nose pain Cardiovascular: Denies chest pain, Denies decreased exercise tolerance, Denies edema, Denies high blood pressure, Denies irregular heart beat, Denies palpitations, Denies paroxysmal nocturnal dyspnea, Denies rapid heart beat, Denies shortness of breath Respiratory: Denies congestion, Denies cough, Denies cough with sputum, Denies dyspnea, Denies home oxygen, Denies wheezing Gastrointestinal: Denies abdominal pain, Denies change in bowel habits, Denies coffee ground emesis, Denies early satiety, Denies excessive gas, Denies heartburn, Denies hematemesis, Denies hematochezia, Denies loss of appetite, Denies nausea, Denies vomiting Genitourinary: Denies dysuria, Denies flank pain, Denies kidney stones, Denies menorrhagia, Denies urgency, Denies urinary frequency Musculoskeletal: Endorses gait dysfunction, endorses limitation of motion, endorses stiffness, endorses muscle cramps in the left extremity upper Integumentary: Denies rash, Denies wounds, Denies brittle nails, Denies change in hair/nails, Denies darkening of skin Neurological: Endorses balance difficulties, Denies change in speech, Denies double vision, endorses gait dysfunction, Denies loss of vision, endorses motor disturbance, Denies numbness, endorses paralysis, Denies paresthesias, Denies seizures Psychiatric: Denies anxiety, Denies depression Endocrine: Denies excessive sweating, Denies excessive thirst, Denies high blood sugars, Denies palpitations Hematologic/Lymphatic: Denies easy bruising, Denies lymphadenopathy Past Medical History Past Medical History: Cancer, Fibromyalgia, GERD/Reflux, Hypertension, Musculoskeletal Disorder Additional Past Medical History / Comment(s): MS, Occ Palpitations. Bruising nataliia breasts from biopsies. Edema nataliia feet. History of Any Multi-Drug Resistant Organisms: None Reported Past Surgical History: Cholecystectomy, Hysterectomy, Orthopedic Surgery Additional Past Surgical History / Comment(s): ORIF left ankle, Colonoscopies, Nataliia Breast Biopsies; Needle Localizations w/ Nataliia breast biopsies 08/05/18. Bilateral breast mastecomy 08/26/18 Past Anesthesia/Blood Transfusion Reactions: Previous Problems w/ Anesthesia, Family History of Problems w/ Anesthesia Additional Past Anesthesia/Blood Transfusion Reaction / Comm: Severe Sore Throat for sev days after 08/05/18 surg. Sister has PONV. Past Psychological History: No Psychological Hx Reported Smoking Status: Former smoker Past Alcohol Use History: None Reported Additional Past Alcohol Use History / Comment(s): Quit smoking 2008, smoked since age 17, 1/2-1 PPD Past Drug Use History: Marijuana Additional Drug Use History / Comment(s): CBD oil - Past Family History Mother Family Medical History: Cancer Additional Family Medical History / Comment(s): breast Father Family Medical History: Cancer Additional Family Medical History / Comment(s): prostate Medications and Allergies Home Medications Medication Instructions Recorded Confirmed Type Ergocalciferol [Vitamin D2] 50,000 unit PO PECK 12/31/14 08/26/18 History Ibuprofen [Motrin] 800 mg PO TID 12/31/14 08/20/18 History Ranitidine HCl [Zantac] 150 mg PO HS 12/31/14 08/20/18 History traMADol HCl [Ultram] 50 mg PO TID PRN 12/31/14 08/20/18 History Ascorbic Acid [Vitamin C with Renee 500 mg PO DAILY 05/22/18 08/20/18 History Hips] Baclofen 10 mg PO TID 05/22/18 08/20/18 History Calcium Citrate 500 mg PO DAILY 05/22/18 08/20/18 History Cinnamon Bark [Cinnamon] 500 mg PO DAILY 05/22/18 08/20/18 History Gabapentin [Neurontin] 100 mg PO QID 05/22/18 08/20/18 History Metoprolol Tartrate [Lopressor] 25 mg PO BID 05/22/18 08/20/18 History Nystatin 100,000 Unit/gm Oint 1 applic TOPICAL BID PRN 05/22/18 08/26/18 History [Mycostatin Oint] Wheat Dextrin [Benefiber] 1 each PO DAILY 05/22/18 08/20/18 History Alendronate Sodium [Fosamax] 70 mg PO PECK 06/26/18 08/26/18 History Cannabidiol (Cbd) Extract 6 drops PO HS PRN 06/26/18 08/26/18 History [Epidiolex] Fish Oil(Dose Unknown) 1 cap PO DAILY 06/26/18 08/20/18 History Multivitamin [Multivitamins Adult 2 each PO DAILY 06/26/18 08/20/18 History Gummies] Dimethyl Fumarate [Tecfidera] 120 mg PO BID 07/31/18 08/20/18 History Meclizine HCl 12.5 mg PO DAILY PRN 07/31/18 08/26/18 History Modafinil [Provigil] 200 mg PO DAILY 07/31/18 08/20/18 History Pantoprazole Sodium [Protonix] 20 mg PO DAILY 07/31/18 08/20/18 History Triamcinolone 0.5% Cream [Kenalog 1 applic TOPICAL DAILY PRN 07/31/18 08/20/18 History 0.5% Cream] Inulin/Chromium Picolinate [Fiber 2 each PO DAILY 08/20/18 08/20/18 History Gummies Chew] Allergies Allergy/AdvReac Type Severity Reaction Status Date / Time No Known Allergies Allergy Verified 08/26/18 09:57 Physical Exam Vitals: Vital Signs Temp Pulse Resp BP BP Pulse Ox 08/27/18 12:43 98 F 102 H 16 175/80 98 08/27/18 05:05 97.8 F 79 16 120/75 100 08/27/18 03:15 98.0 F 78 18 112/56 97 08/27/18 03:08 82 18 152/72 95 08/27/18 02:00 96.3 F L 83 16 137/64 99 08/27/18 00:00 16 08/26/18 22:30 98 F 73 18 113/57 96 08/26/18 22:15 98 F 70 18 110/53 97 08/26/18 22:00 97.4 F L 72 18 106/55 97 08/26/18 21:45 97.4 F L 78 18 117/56 97 08/26/18 21:30 97.2 F L 71 18 112/56 97 08/26/18 21:15 97.2 F L 85 18 113/57 98 08/26/18 21:00 77 18 127/57 95 08/26/18 20:30 81 18 143/69 98 08/26/18 20:15 96.8 F L 98 18 141/66 96 08/26/18 20:00 82 18 153/72 96 08/26/18 19:45 96.6 F L 80 18 163/73 08/26/18 19:30 96.6 F L 83 16 167/76 95 08/26/18 19:05 87 16 158/79 96 08/26/18 18:53 82 16 163/75 96 08/26/18 18:38 85 16 185/96 96 08/26/18 18:23 84 16 186/81 99 08/26/18 18:08 98.1 F 92 18 183/95 100 Intake and Output 08/26/18 08/27/18 08/27/18 22:59 06:59 14:59 Intake Total 790 740 300 Output Total 50 660 906 Balance 740 80 -606 Intake: IV 250 Intake, IV Titration 300 500 300 Amount Dextrose 5%-0.45% NaCl 1, 300 500 300 000 ml @ 100 mls/hr IV . Q10H [facility] Rx#:[id number] Oral 240 240 Output: Drainage 60 106 Bilateral 60 left chest drain #1 35 left chest drain #2 10 right chest drain #3 60 right chest drain #4 1 Urine 600 800 Straight 600 Estimated Blood Loss 50 Other: Voiding Method Bedpan Bedpan # Bowel Movements 1 - Constitutional General appearance: cooperative, no acute distress, obese - EENT Eyes: anicteric sclerae, PERRLA, normal appearance ENT: hearing grossly normal - Neck Neck: no lymphadenopathy, normal ROM, no other, no rigidity, no stridor, no thyromegaly - Respiratory Respiratory: bilateral: CTA, negative: diminished, dullness, rales, rhonchi. B/l Chest drain in place - Cardiovascular Rhythm: regular Heart sounds: normal: S1, S2 Abnormal Heart Sounds: no systolic murmur, no diastolic murmur, no rub, no S3 Gallop, no S4 Gallop, no click, no other - Gastrointestinal General gastrointestinal: normal bowel sounds, soft nontender nondistended - Integumentary Integumentary: no rash - Neurologic Neurologic: CNII-XII intact, right upper extremity 5/5 motor per no sensory deficit left upper extremity contracture difficulty lifting the arm 1/5 motor power no sensory deficit. Left lower extremity 0/5 power normal tone right lower extremity 3/5 power no sensory deficit - Musculoskeletal Musculoskeletal: Wheelchair bound, strength equal bilaterally - Psychiatric Psychiatric: A&O x's 3, appropriate affect Results CBC & Chem 7: 08/27/18 11:06 Labs: Abnormal Lab Results - Last 24 Hours (Table) 08/27/18 Range/Units 11:06 Neutrophils # 8.3 H (1.3-7.7) k/uL Lymphocytes # 0.5 L (1.0-4.8) k/uL Assessment and Plan Plan: #1 left breast invasive ductal carcinoma postoperative bilateral mastectomy with BRAIN drain in place bilaterally. Incentive spirometry. Lovenox for DVT prophyl axis. Pain medication per primary team #2 residual left upper and left lower extremity weakness from MS continue Tecfidera #3 acute weakness in the right lower extremity concerning for MS exacerbation. Neurology consult placed. We will start patient on IV Solu-Medrol for MS exacerbation if agreeable with neurology #4 history of narcolepsy continue modafinil #5 hypertension continue metoprolol 25 twice a day #6 contracture in the left upper extremity baclofen and gabapentin as needed for muscle cramps #7 osteoporosis since hold Fosamax while patient is in the hospital #8 CODE STATUS full code Thank you for the consult. I'll be happy to assist in patient's need while patient is in the hospital
[2018-08-27] MEDS: GABAPENTIN 100 MG CAP PO SCH ×3 (13:50→22:01)
[2018-08-27] MEDS: BACLOFEN 10 MG TAB PO SCH ×2 (13:50→22:01)
[2018-08-27] MEDS: METOPROLOL TARTRATE 25 MG TAB PO SCH (22:01)
[2018-08-27] MEDS: TECFIDERA PO SCH (22:02)
[2018-08-28] MEDS: HEPARIN SODIUM,PORCINE 5,000 UNIT/ML 1 ML VIAL SQ SCH ×4 (00:07→23:38)
[2018-08-28 07:00] LABS: Glucose,Whole Blood 127 mg/dL (75-99)
[2018-08-28] MEDS: BACLOFEN 10 MG TAB PO SCH ×3 (08:28→21:34)
[2018-08-28] MEDS: GABAPENTIN 100 MG CAP PO SCH ×4 (08:28→21:33)
[2018-08-28] MEDS: PANTOPRAZOLE 40 MG TABLET PO SCH (08:28)
[2018-08-28] MEDS: MODAFINIL 200 MG TAB PO SCH (08:28)
[2018-08-28] MEDS: METOPROLOL TARTRATE 25 MG TAB PO SCH ×2 (08:28→21:33)
[2018-08-28] MEDS: HYDROcodone/APAP 5-325MG 1 EACH TAB PO PRN ×2 (08:29→18:28)
[2018-08-28] MEDS: TECFIDERA PO SCH ×2 (08:33→21:33)
--- NOTE | 2018-08-28 08:52 | P.PN ---
Subjective Progress Note Date: 08/28/18 Patient is postop day two from bilateral mastectomy with left sentinel node biopsy. Postoperatively the patient is doing well, she is tolerating diet without difficulty. She has been unable to urinate initially and required straight cath on 2 occasions. Since then she has been urinating without requiri ng straight cath. She has multiple sclerosis and states that after general anesthesia she sometimes has had difficulty with urination. She states she continues to be weak and had difficulty with attempting to prevent yesterday. She was seen by medicine and a consult with neurology was placed. They have not seen her yet. She had a low-grade temperature this morning of 100.4. Her hemoglobin yesterday was 12.8. We are awaiting her hemoglobin this morning. She has had persistent serous drainage from her right BRAIN#3 drain. Objective - Vital Signs Vital signs: Vital Signs Temp 100.4 F H 08/28/18 05:21 Pulse 93 08/28/18 05:21 Resp 16 08/28/18 05:21 BP 140/79 08/28/18 05:21 Pulse Ox 94 L 08/28/18 05:21 Intake & Output 08/27/18 08/28/18 08/28/18 18:59 06:59 18:59 Intake Total 300 Output Total 1536 110 Balance -1236 -110 Intake: Intake, IV Titration 300 Amount Dextrose 5%-0.45% NaCl 1, 300 000 ml @ 100 mls/hr IV . Q10H [facility] Rx#:[id number] Output: Drainage 236 110 left chest drain #1 85 30 left chest drain #2 30 30 right chest drain #3 110 40 right chest drain #4 11 10 Urine 1300 Other: Voiding Method Bedside Commode Bedpan # Voids 1 # Bowel Movements 1 - Constitutional General appearance: Present: obese - EENT Eyes: Present: EOMI ENT: Present: hearing grossly normal - Respiratory Respiratory: bilateral: diminished - Cardiovascular Rhythm: regular Heart sounds: normal: S1, S2 - Integumentary Integumentary Comment(s): Incisions bilateral clean and dry BRAIN drains emptied all are serious however BRAIN #3 was full and was emptied and placed to suction No evidence of any infection No evidence of any obvious hematoma Dressings changed and Eyal wrap reapplied - Labs CBC & Chem 7: 08/27/18 11:06 Labs: Abnormal Lab Results - Last 24 Hours (Table) 07/10/19 07/11/19 Range/Units 11:06 06:59 Neutrophils # 8.3 H (1.3-7.7) k/uL Lymphocytes # 0.5 L (1.0-4.8) k/uL POC Glucose (mg/dL) 127 H (75-99) mg/dL Assessment and Plan Assessment: Impression: 1. Patient postop day #2 bilateral mastectomy with left sentinel node biopsy 2. Patient with multiple sclerosis, states she feels weak 3. Limited mobility, is able to stand and pivot with help preoperatively, had difficulty with this yesterday 4. Urinary retention appears to be resolved 5. Hypertension 6. Low-grade temperature suspect related to atelectasis Plan: 1. Straight cath as needed 2. Up in chair with assistance 3. Change IV to Hep-Lock/ done 4. Medical consult appreciated 5. Await neurology consult 6. Await CBC results/monitored BRAIN output 7. Incentive spirometry every hour while awake 8. We will start oral antibiotics secondary to low-grade temperature 9. Await results from occupational and physical therapy
[2018-08-28 09:35] LABS: Basophils % (A) 0 %; Eosinophils % (A) 0 %; HGB 12.6 gm/dL (11.4-16.0); Lymphocytes # (A) 0.7 k/uL (1.0-4.8); Lymphocytes % (A) 9 %; MCHC 33.1 g/dL (31.0-37.0); MCV 90.8 fL (80.0-100.0); Mean Platelet Volume 6.4; Monocytes # (A) 0.6 k/uL (0-1.0); Monocytes % (A) 7 %; Neutrophils # (A) 6.6 k/uL (1.3-7.7); Neutrophils % (A) 82 %; Platelet Count 208 k/uL (150-450); RBC 4.19 m/uL (3.80-5.40); RDW 14.5 % (11.5-15.5); WBC 8.1 k/uL (3.8-10.6)
[2018-08-28 09:54] LABS: ALT 28 U/L (9-52); AST 15 U/L (14-36); African American GFR (CKD) >90 (>60 ml/min/1.73 sqM); Alkaline Phosphatase 64 U/L (38-126); Anion Gap 9 mmol/L; Blood Urea Nitrogen 7 mg/dL (7-17); Calcium 8.8 mg/dL (8.4-10.2); Carbon Dioxide 27 mmol/L (22-30); Chloride 102 mmol/L (98-107); Glucose 141 mg/dL (74-99); Potassium 3.9 mmol/L (3.5-5.1); Sodium 138 mmol/L (137-145); Total Bilirubin 0.7 mg/dL (0.2-1.3); Total Protein 6.3 g/dL (6.3-8.2)
[2018-08-28 10:57] LABS: Appearance,Urine Turbid (Clear); Bacteria,Urine Moderate /hpf; Bilirubin,Urine Negative (Negative); Blood,Urine Moderate (Negative); Color,Urine Yellow; Glucose,Urine (UA) Negative (Negative); Ketones,Urine Negative (Negative); Leukocyte Esterase,Urine Large (Negative); Mucus,Urine Occasional /hpf; Nitrite,Urine Positive (Negative); Protein,Urine 1+ (Negative); RBC,Urine 93 /hpf (0-5); Specific Gravity,Urine 1.023 (1.001-1.035); Squamous Epithelial Cell,Urine 12 /hpf (0-4)
--- NOTE | 2018-08-28 11:09 | CONS ---
CONSULTATION DATE OF CONSULTATION: 08/28/2018 REFERRING PHYSICIAN: Dr. Young. HISTORY OF PRESENT ILLNESS: Thank you for allowing me to evaluate Chantel Richardson who is a 57-year-old right- handed white female who presented to [facility] on 08/26/2018 for treatment of recently identified breast cancer. The patient underwent bilateral mastectomies on the day of admission accompanied by left sentinel node biopsy. The patient states she has no history of documented metastasis and has not received chemotherapy/radiation. The patient is being seen from a neurologic standpoint due to her history of multiple sclerosis and increased weakness following surgery. The patient states that "every time I have a surgery I get weak". The patient states that she hates receiving steroids and tends to improve in her weakness when she is able to get up and moving. The last similar incident occurred in February 2018 when the patient had a cholecystectomy. The patient states she became weak in a generalized fashion and was given a short course of oral steroids. The patient feels similar generalized weakness following this procedure. The patient has also developed postoperative fevers with a T- max of 100.9 over the past 24 hours. She currently denies headache, but states she has had urinary frequency and when attempting to urinate while in bed on a bedpan, had difficulty doing this and therefore had to be straight catheterized. The patient states she typically does not have urinary retention or urgency. The patient was diagnosed with multiple sclerosis in [address] Vega on an outpatient basis. She states she was initially placed on Avonex, but developed elevated LFTs and other medication exposures have included Copaxone, Rebif, Tysabri and she has been on Tecfidera over the past 3 years. She has not impressed that any of these medications have provided significant benefit. She states in 2007 she began dragging her left lower extremity; in 2009, had reduced function of the proximal left upper extremity. In 2013, she had a relapse where she lost the function of the left leg for walking and in 2014, lost the distal function of the left upper extremity. She also has weakness on the right, but the left side has been much more prominently affected. She has been essentially wheelchair/scooter bound since 2013. She denies lower extremity numbness at baseline but does have intermittent numbness involving the upper extremities. She denies urine stressful incontinence or numbness in genital/rectal region at baseline. She has had no difficulty chewing/swallowing, dysarthria, or visual loss/diplopia at baseline and denies these symptoms at this time. The patient states that prior to her cholecystectomy in February 2018 she was able to walk short distances "now and then" with the use of the rolling walker, since that time she is only able to stand, pivot into her scooter or wheelchair and cannot greens picker her left leg at all. ALLERGIES: No known drug allergies. HOME MEDICATIONS: Ultram, Benefiber, Zantac, Protonix, multivitamin, Provigil 200 mg q. day, Lopressor, meclizine, Motrin, Neurontin 100 mg q.i.d., fish oil, vitamin D, Tecfidera, Epidiolex, calcium, baclofen, ascorbic acid, and Fosamax. PAST MEDICAL HISTORY: Multiple sclerosis diagnosed in 2002, recently identified breast cancer, obesity, fibromyalgia, GERD, hypertension, and osteoporosis. PAST SURGICAL HISTORY: Cholecystectomy, hysterectomy, left ankle ORIF, and bilateral mastectomy completed during this hospitalization on 08/26/2018. SOCIAL HISTORY: The patient quit smoking 10 years ago and denied alcohol or drug use. She does use CBD oil. She is without children and lives in a house with her sister. She has been essentially wheelchair/scooter bound since 2013. FAMILY HISTORY: The patient's parents are alive. Mother with coronary artery disease, breast cancer, and diabetes mellitus. Father has borderline diabetes mellitus, prostate cancer and was recently diagnosed with bipolar disorder. She denies family history of multiple sclerosis, seizure or other neurologic disease. REVIEW OF SYSTEMS: Fourteen systems are reviewed and no additional points are identified. The review of systems documented in history and physical. PHYSICAL EXAMINATION: Upon arrival to the patient's room she was lying in bed, receptive to the examiner. Affect is normal. She is an accurate historian and appears of stated age. She is obese and deconditioned. VITAL SIGNS: Blood pressure is 140/79 with a pulse of 93, respiratory rate 16, temperature is 100.4, T-max in the last 24 hours 100.9, weight is at 123.8 kg on a 5- foot, 5-inch frame. SKIN AND EXTREMITIES: The left hand is fisted. HEAD AND NECK: No tenderness or signs of trauma. Neck is supple without meningeal signs. Arteries are nontender and without bruits. HEART: Regular rate and rhythm. HIGHER CORTICAL FUNCTION: MENTAL STATUS: Patient was alert, oriented to self, she knew she was in [facility]. She knew the floor, year, month, day of week and could name the current president. She was able to name, repeat and read. There was no right left disorientation, finger agnosia, extinction to double simultaneous stimulation or dysarthria. CRANIAL NERVES II THROUGH XII: Pupils are equal and reactive to light symmetrically. No afferent pupillary defect. Visual roque are intact to confrontation. III, IV, : No ptosis. Extraocular movements full. No nystagmus. V: Pinprick and light touch intact in all 3 divisions. intact. VII: No facial asymmetry or weakness. VIII: Acuity intact to finger rub. XI, X: Palate farshad in midline. XI: Trapezius strength intact. XII: Tongue protruded slightly to the left without fasciculation or atrophy. MOTOR EXAMINATION: There is spooning of the right upper extremity without drift. The patient is unable to lift the left upper extremity against gravity at baseline. There is normal bulk with increased tone involving the left upper and bilateral lower extremities. No involuntary movements are noted. Strength in right upper extremity is 4+/5 in a pyramidal distribution, except at the interossei which are 4/5. In the left upper extremity, strength is 4- over 5 proximally and 0/5 distally. In the lower extremities, strength is listed on a 0 to 5 MRC scale, right side listed first: Iliopsoas 2/0, Quadriceps 4/0, hamstring 4 minus/zero, ankle dorsiflexors 0/0, ankle plantar flexors 5 minus/4+, the patient is able to wiggle toes on both feet, better on the right. Sensory intact to pinprick/light touch in all extremities. Reflexes with right side first: Biceps 3/2, brachioradialis 3/2, triceps 3/2, patella 2+/3, ankle 0/0. There are shortened heel cords bilaterally. Plantar response is extensor bilaterally. Sarmiento's is present bilaterally, the left hand is fisted. COORDINATION: There was no dysmetria with right [id number] movements. Left finger- to-nose or [id number] on either side could not be performed. Rapid alternating movements are slow on the right with finger tapping. DIAGNOSTIC TESTING: Patient's lab work demonstrates a white blood cell count of 9.4 with a hemoglobin of 12.8, platelet count 215. IMPRESSION: 1. Increased weakness in a patient with a long history of multiple sclerosis and baseline dense left hemiparesis/paraparesis, likely representing pseudo exacerbation in the setting of stress of recent surgery/postoperative fevers. Patient developed similar weakness following cholecystectomy in February 2018. 2. Urinary frequency/retention, likely secondary to immobility, rule out urinary tract infection. 3. The patient is status post bilateral mastectomies on 08/26/2018 with left sentinel node biopsy. 4. Multiple medical problems including obesity, fibromyalgia, gastroesophageal reflux disease, hypertension, and osteoporosis. RECOMMENDATION: 1. I discussed my impression with the patient and she expressed understanding. 2. We will obtain urinalysis and postvoid residuals. 3. Would not recommend initiating steroids at this time. 4. Physical and occupational therapy evaluation and treatment. 5. Please feel free to contact me if there are further questions from a neurologic standpoint, the patient should follow up with her outpatient neurologist (Dr. Vega) following discharge. Thank you for allowing me to participate in the care of your patient. MMODL / IJN: [id number] /
[2018-08-28 11:41] LABS: Glucose,Whole Blood 136 mg/dL (75-99)
--- NOTE | 2018-08-28 15:36 | P.PN ---
Subjective Progress Note Date: 08/28/18 This is a very pleasant 57 years old white female who presented for bilateral mastectomy with Dr. Chavo todd for abnormal mammograms of the left breast followed by needle localization and an x-ray lesion biopsy of the left breast there are 3 areas were biopsied and the right breast. 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 Patient underwent bilateral mastectomy with by a left sentinel node biopsy on 08/26/2018. She was seen postoperatively today and had arm weakness off and right lower extremity. Patient has a history of multiple sclerosis arm as well as hypertension and is currently on tecfidera . Patient has lost her left upper and lower extremity function from previous MS exacerbation post procedures. Patient can pivot and transfer but is unable to put any weight on the left lower extremity. She does have worsening weakness in the right lower extremity since her previous gallbladder removal in February 2018. Patient is unable to lift her foot. She is wheelchair bound and uses an electric scooter to mobilize. She denies any sensory deficit, facial droop, seizure, dizziness. Patient was last given oral steroids in February after her gallbladder removal. Vitals this morning suggests a temp of 96.3 pulse of 83/blood pressure is 137/64 currently on room air. Patient also had an episode of urinary retention of more than 700 mL and had straight cath yesterday. She is able to empty her bladder normal and had a bowel movement. Her lab evaluation patient has a leukocyte of 9.4 hemoglobin 12.9 platelet 2:15 glucose of 109 potassium 4.7 creatinine 0.6. Neurology consult placed for evaluation of MS exacerbation 08/28: Temperature max 100.7. Today, patient is able to urinate on her own. She has been evaluated by Dr. Escamilla and he does not feel patient is having MS exacerbation. Patient states that she is feeling better from yesterday. She denies having any chest pain or shortness of breath. She gives history that her pulse ox dropped during the night and she was placed on oxygen. She has not been tested for sleep apnea. Patient continues to have drainage from BRAIN. We will add an IV Lasix for lower extremity edema secondary to IV fluids and lack of activity. Urinalysis is positive for urinary tract infection and patient started on Rocephin. PT and OT in place. Discussed discharge planning with the patient, she indicates that she wishes to go home. She does not want subacute rehab. Objective - Vital Signs Vital signs: Vital Signs Temp 100.4 F H 08/28/18 05:21 Pulse 93 08/28/18 05:21 Resp 16 08/28/18 05:21 BP 140/79 08/28/18 05:21 Pulse Ox 94 L 08/28/18 05:21 Intake & Output 08/27/18 08/28/18 08/28/18 18:59 06:59 18:59 Intake Total 300 Output Total 1536 110 Balance -1236 -110 Intake: Intake, IV Titration 300 Amount Dextrose 5%-0.45% NaCl 1, 300 000 ml @ 100 mls/hr IV . Q10H [facility] Rx#:[id number] Output: Drainage 236 110 left chest drain #1 85 30 left chest drain #2 30 30 right chest drain #3 110 40 right chest drain #4 11 10 Urine 1300 Other: Voiding Method Bedside Commode Bedpan # Voids 1 # Bowel Movements 1 - Exam Review of Systems Constitutional: Denies chills, Denies fever, Denies lethargy, Denies malaise, Denies poor appetite, reports weakness, Denies weight loss Eyes: denies decreased vision, denies diplopia, denies discharge, denies pain Ears: deny: decreased hearing Ears, nose, mouth and throat: Denies dental pain, Denies headache, Denies nasal discharge, Denies nose pain Cardiovascular: Denies chest pain, Denies decreased exercise tolerance, Denies edema, Denies high blood pressure, Denies irregular heart beat, Denies palpitations, Denies paroxysmal nocturnal dyspnea, Denies rapid heart beat, Denies shortness of breath Respiratory: Denies congestion, Denies cough, Denies cough with sputum, Denies dyspnea, Denies home oxygen, Denies wheezing Gastrointestinal: Denies abdominal pain, Denies change in bowel habits, Denies coffee ground emesis, Denies early satiety, Denies excessive gas, Denies heartburn, Denies hematemesis, Denies hematochezia, Denies loss of appetite, Denies nausea, Denies vomiting Genitourinary: Denies dysuria, Denies flank pain, Denies kidney stones, Denies menorrhagia, Denies urgency, Denies urinary frequency Musculoskeletal: Endorses gait dysfunction, endorses limitation of motion, endorses stiffness, endorses muscle cramps in the left extremity upper Integumentary: Denies rash, Denies wounds, Denies brittle nails, Denies change in hair/nails, Denies darkening of skin Neurological: Endorses balance difficulties, Denies change in speech, Denies double vision, endorses gait dysfunction, Denies loss of vision, endorses motor disturbance, Denies numbness, endorses paralysis, Denies paresthesias, Denies seizures Psychiatric: Denies anxiety, Denies depression Endocrine: Denies excessive sweating, Denies excessive thirst, Denies high blood sugars, Denies palpitations Hematologic/Lymphatic: Denies easy bruising, Denies lymphadenopathy Physical exam: - Constitutional General appearance: cooperative, no acute distress, morbidly obese - EENT Eyes: anicteric sclerae, PERRLA, normal appearance ENT: hearing grossly normal - Neck Neck: no lymphadenopathy, normal ROM, no other, no rigidity, no stridor, no thyromegaly - Respiratory Respiratory: bilateral: CTA, negative: diminished, dullness, rales, rhonchi. B/l Chest drain in place - Cardiovascular Rhythm: regular Heart sounds: normal: S1, S2 Abnormal Heart Sounds: no systolic murmur, no diastolic murmur, no rub, no S3 Gallop, no S4 Gallop, no click, no other - Gastrointestinal General gastrointestinal: normal bowel sounds, soft nontender nondistended - Integumentary Integumentary: no rash - Neurologic Neurologic: CNII-XII intact, right upper extremity 5/5 motor per no sensory deficit left upper extremity contracture difficulty lifting the arm 1/5 motor power no sensory deficit. Left lower extremity 0/5 power normal tone right lower extremity 3/5 power no sensory deficit - Musculoskeletal Musculoskeletal: Wheelchair bound, strength equal bilaterally - Psychiatric Psychiatric: A&O x's 3, appropriate affect - Labs CBC & Chem 7: 08/28/18 08:53 08/28/18 08:53 Labs: Abnormal Lab Results - Last 24 Hours (Table) 08/27/18 08/28/18 08/28/18 Range/Units 11:06 06:59 08:53 Neutrophils # 8.3 H (1.3-7.7) k/uL Lymphocytes # 0.5 L 0.7 L (1.0-4.8) k/uL Glucose (74-99) mg/dL POC Glucose (mg/dL) 127 H (75-99) mg/dL 08/28/18 Range/Units 08:53 Neutrophils # (1.3-7.7) k/uL Lymphocytes # (1.0-4.8) k/uL Glucose 141 H (74-99) mg/dL POC Glucose (mg/dL) (75-99) mg/dL Assessment and Plan Plan: #1 left breast invasive ductal carcinoma postoperative bilateral mastectomy with BRAIN drains in place bilaterally. Incentive spirometry. Lovenox for DVT prophylaxis. Pain medication per primary team. #2 residual left upper and left lower extremity weakness from MS continue Tecfidera #3 acute weakness in the right lower extremity concerning for MS exacerbation, ruled out by neurology. Neurology consult placed. No plan for IV Solu-Medrol #4 history of narcolepsy continue modafinil. #5 hypertension continue metoprolol 25 twice a day #6 contracture in the left upper extremity baclofen and gabapentin as needed for muscle cramps #7 osteoporosis since hold Fosamax while patient is in the hospital #8 CODE STATUS full code 9. Acute urinary tract infection secondary to chronic urinary tract infection, most likely present on admission. Discharge plan: Home. PT and OT in place. Impression and plan of care have been directed as dictated by the signing physician. Stephanie Schmitt nurse practitioner acting as scribe for signing physician.
[2018-08-28] MEDS: FUROSEMIDE 10 MG/ML 2 ML VIAL IV SCH (16:27)
--- NOTE | 2018-08-29 08:13 | P.PN ---
Subjective Progress Note Date: 08/29/18 Principal diagnosis: Postop day #3 bilateral mastectomy left sentinel node biopsy Patient is postop day three from bilateral mastectomy with left sentinel node biopsy. Postoperatively the patient is doing well, she is tolerating diet without difficulty. She has been unable to urinate initially and required straight cath on 2 occasions. Since then she has been urinating without requiring straight cath. She has multiple sclerosis and states that after general anesthesia she sometimes has had difficulty with urination. She states she continues to be weak and had difficulty with attempting to pivit yesterday. She was seen by medicine and a consult with neurology was placed. She had a low-grade temperature yesterday of 100.4, UA was positive and she was started on Rocephin. She is afebrile this morning. Her hemoglobin yesterday was 12.6. We are awaiting her hemoglobin this morning. She has had persistent serous drainage from her right BRAIN drains which have become slightly more sanguinous. We will continue to follow these closely. Objective - Vital Signs Vital signs: Vital Signs Temp 98.7 F 08/29/18 05:10 Pulse 91 08/29/18 05:10 Resp 18 08/29/18 05:10 BP 152/79 08/29/18 05:10 Pulse Ox 96 08/29/18 05:10 Intake & Output 08/28/18 08/29/18 08/29/18 18:59 06:59 18:59 Intake Total 720 Output Total 345 175 140 Balance -345 545 -140 Intake: Oral 720 Output: Drainage 345 175 140 left chest drain #1 45 15 25 left chest drain #2 50 10 10 right chest drain #3 165 55 40 right chest drain #4 85 95 65 Other: Voiding Method Bedpan Bedpan # Voids 7 1 - Constitutional General appearance: Present: obese - EENT Eyes: Present: EOMI ENT: Present: hearing grossly normal - Respiratory Respiratory: bilateral: diminished - Cardiovascular Rhythm: regular Heart sounds: normal: S1, S2 - Integumentary Integumentary Comment(s): Bilateral incisions clean and dry no evidence of infection No hematoma identified BRAIN drains in place output serous slightly more sanguinous on the right than on the left - Musculoskeletal Musculoskeletal Comment(s): Persistent weakness related to multiple sclerosis Unable to move lower extremities well Unable to move the left upper extremity - Psychiatric Psychiatric: Present: A&O x's 3, appropriate affect - Labs CBC & Chem 7: 08/28/18 08:53 08/28/18 08:53 Labs: Abnormal Lab Results - Last 24 Hours (Table) 08/28/18 08/28/18 08/28/18 Range/Units 08:53 08:53 10:21 Lymphocytes # 0.7 L (1.0-4.8) k/uL Glucose 141 H (74-99) mg/dL POC Glucose (mg/dL) (75-99) mg/dL Urine Appearance Turbid H (Clear) Urine Protein 1+ H (Negative) Urine Blood Moderate H (Negative) Urine Nitrite Positive H (Negative) Ur Leukocyte Esterase Large H (Negative) Urine RBC 93 H (0-5) /hpf Urine WBC >182 H (0-5) /hpf Urine WBC Clumps Few H (None) /hpf Ur Squamous Epith Cells 12 H (0-4) /hpf Urine Bacteria Moderate H (None) /hpf Urine Mucus Occasional H (None) /hpf 08/28/18 Range/Units 11:40 Lymphocytes # (1.0-4.8) k/uL Glucose (74-99) mg/dL POC Glucose (mg/dL) 136 H (75-99) mg/dL Urine Appearance (Clear) Urine Protein (Negative) Urine Blood (Negative) Urine Nitrite (Negative) Ur Leukocyte Esterase (Negative) Urine RBC (0-5) /hpf Urine WBC (0-5) /hpf Urine WBC Clumps (None) /hpf Ur Squamous Epith Cells (0-4) /hpf Urine Bacteria (None) /hpf Urine Mucus (None) /hpf Microbiology - Last 24 Hours (Table) 08/28/18 10:21 Urine Culture - Preliminary Urine,Voided Assessment and Plan Assessment: Impression: 1. Patient postop day #3 bilateral mastectomy with left sentinel node biopsy 2. Patient with multiple sclerosis, states she feels weak 3. Limited mobility, is able to stand and pivot with help preoperatively, had difficulty with this yesterday 4. Urinary retention appears to be resolved 5. Hypertension 6. Low-grade temperature yesterday suspect related to atelectasis, urinary tract infection patient presently on antibiotics, afebrile this morning Plan: 1. Straight cath as needed 2. Up in chair with assistance 3. Change IV to Hep-Lock/ done 4. Medical consult appreciated 5. neurology consult appreciated 6. Await CBC results/monitored BRAIN output 7. Incentive spirometry every hour while awake 8. Patient started on antibiotics for UTI 9. Await results from occupational and physical therapy
[2018-08-29] MEDS: HYDROcodone/APAP 5-325MG 1 EACH TAB PO PRN (08:20)
[2018-08-29] MEDS: PANTOPRAZOLE 40 MG TABLET PO SCH (08:20)
[2018-08-29] MEDS: METOPROLOL TARTRATE 25 MG TAB PO SCH ×2 (08:20→22:14)
[2018-08-29] MEDS: MODAFINIL 200 MG TAB PO SCH (08:20)
[2018-08-29] MEDS: GABAPENTIN 100 MG CAP PO SCH ×4 (08:21→22:14)
[2018-08-29] MEDS: FUROSEMIDE 10 MG/ML 2 ML VIAL IV SCH (08:21)
[2018-08-29] MEDS: HEPARIN SODIUM,PORCINE 5,000 UNIT/ML 1 ML VIAL SQ SCH ×2 (08:21→18:31)
[2018-08-29] MEDS: BACLOFEN 10 MG TAB PO SCH ×3 (08:21→22:15)
[2018-08-29] MEDS: TECFIDERA PO SCH ×2 (08:25→22:15)
[2018-08-29 08:58] LABS: Basophils % (A) 1 %; Eosinophils # (A) 0.1 k/uL (0-0.7); Eosinophils % (A) 1 %; HCT 35.7 % (34.0-46.0); Lymphocytes # (A) 0.6 k/uL (1.0-4.8); Lymphocytes % (A) 9 %; MCH 30.3 pg (25.0-35.0); MCHC 33.7 g/dL (31.0-37.0); MCV 89.8 fL (80.0-100.0); Mean Platelet Volume 6.4; Monocytes # (A) 0.4 k/uL (0-1.0); Monocytes % (A) 6 %; Neutrophils # (A) 5.9 k/uL (1.3-7.7); Neutrophils % (A) 82 %; Platelet Count 197 k/uL (150-450); RBC 3.98 m/uL (3.80-5.40); RDW 14.4 % (11.5-15.5); WBC 7.2 k/uL (3.8-10.6)
[2018-08-29 13:05] VITALS: RESP 16
--- NOTE | 2018-08-29 13:57 | P.PN ---
Subjective Progress Note Date: 08/29/18 This is a very pleasant 57 years old white female who presented for bilateral mastectomy with Dr. Chavo todd for abnormal mammograms of the left breast followed by needle localization and an x-ray lesion biopsy of the left breast there are 3 areas were biopsied and the right breast. 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 Patient underwent bilateral mastectomy with by a left sentinel node biopsy on 08/26/2018. She was seen postoperatively today and had arm weakness off and right lower extremity. Patient has a history of multiple sclerosis arm as well as hypertension and is currently on tecfidera . Patient has lost her left upper and lower extremity function from previous MS exacerbation post procedures. Patient can pivot and transfer but is unable to put any weight on the left lower extremity. She does have worsening weakness in the right lower extremity since her previous gallbladder removal in February 2018. Patient is unable to lift her foot. She is wheelchair bound and uses an electric scooter to mobilize. She denies any sensory deficit, facial droop, seizure, dizziness. Patient was last given oral steroids in February after her gallbladder removal. Vitals this morning suggests a temp of 96.3 pulse of 83/blood pressure is 137/64 currently on room air. Patient also had an episode of urinary retention of more than 700 mL and had straight cath yesterday. She is able to empty her bladder normal and had a bowel movement. Her lab evaluation patient has a leukocyte of 9.4 hemoglobin 12.9 platelet 2:15 glucose of 109 potassium 4.7 creatinine 0.6. Neurology consult placed for evaluation of MS exacerbation 08/28: Temperature max 100.7. Today, patient is able to urinate on her own. She has been evaluated by Dr. Escamilla and he does not feel patient is having MS exacerbation. Patient states that she is feeling better from yesterday. She denies having any chest pain or shortness of breath. She gives history that her pulse ox dropped during the night and she was placed on oxygen. She has not been tested for sleep apnea. Patient continues to have drainage from BRAIN. We will add an IV Lasix for lower extremity edema secondary to IV fluids and lack of activity. Urinalysis is positive for urinary tract infection and patient started on Rocephin. PT and OT in place. Discussed discharge planning with the patient, she indicates that she wishes to go home. She does not want subacute rehab. 08/29: Patient denies any new complaints. She is been afebrile for the past 24 hours, heart rate 91, blood pressure 152/79, pulse ox 96% on room air. Urine culture is still in progress. There is some concern that she has been drainage from the right BRAIN that is slightly more sanguinous. Patient has been evaluated by physical therapy with recommendations for subacute rehab. Patient was thinking about going to [facility] but feels that she would be better off at home as she has all her equipment to deal with her MS. Social work and case management following. We anticipate possible discharge today. We will place a prescription for Keflex knowing that urine cultures not been finalized. Objective - Vital Signs Vital signs: Vital Signs Temp 98.7 F 08/29/18 05:10 Pulse 91 08/29/18 05:10 Resp 18 08/29/18 05:10 BP 152/79 08/29/18 05:10 Pulse Ox 96 08/29/18 05:10 Intake & Output 08/28/18 08/29/18 08/29/18 18:59 06:59 18:59 Intake Total 720 Output Total 345 175 140 Balance -345 545 -140 Intake: Oral 720 Output: Drainage 345 175 140 left chest drain #1 45 15 25 left chest drain #2 50 10 10 right chest drain #3 165 55 40 right chest drain #4 85 95 65 Other: Voiding Method Bedpan Bedpan # Voids 7 1 - Exam Review of Systems Constitutional: Denies chills, Denies fever, Denies lethargy, Denies malaise, Denies poor appetite, reports weakness Eyes: denies decreased vision, denies diplopia, denies discharge, denies pain Ears: deny: decreased hearing Ears, nose, mouth and throat: Denies dental pain, Denies headache, Denies nasal discharge, Denies nose pain Cardiovascular: Denies chest pain, Denies decreased exercise tolerance, Denies edema, Denies high blood pressure, Denies irregular heart beat, Denies palpitations, Denies paroxysmal nocturnal dyspnea, Denies rapid heart beat, Denies shortness of breath Respiratory: Denies congestion, Denies cough, Denies cough with sputum, Denies dyspnea, Denies home oxygen, Denies wheezing Gastrointestinal: Denies abdominal pain, Denies change in bowel habits, Denies coffee ground emesis, Denies early satiety, Denies excessive gas, Denies heartburn, Denies hematemesis, Denies hematochezia, Denies loss of appetite, Denies nausea, Denies vomiting Genitourinary: Denies dysuria, Denies flank pain, Denies kidney stones, Denies menorrhagia, Denies urgency, Denies urinary frequency Musculoskeletal: Endorses gait dysfunction, endorses limitation of motion, endorses stiffness, endorses muscle cramps in the left extremity upper Integumentary: Denies rash, Denies wounds, Denies brittle nails, Denies change in hair/nails, Denies darkening of skin Neurological: Endorses balance difficulties, Denies change in speech, Denies double vision, endorses gait dysfunction, Denies loss of vision, endorses motor disturbance, Denies numbness, endorses paralysis, Denies paresthesias, Denies seizures Psychiatric: Denies anxiety, Denies depression Endocrine: Denies excessive sweating, Denies excessive thirst, Denies high blood sugars, Denies palpitations Hematologic/Lymphatic: Denies easy bruising, Denies lymphadenopathy Physical exam: - Constitutional General appearance: cooperative, no acute distress, morbidly obese, resting in bed - EENT Eyes: anicteric sclerae, PERRLA, normal appearance ENT: hearing grossly normal - Neck Neck: no lymphadenopathy, normal ROM, no other, no rigidity, no stridor, no thyromegaly - Respiratory Respiratory: bilateral: CTA, negative: diminished, dullness, rales, rhonchi. B/l Chest drain in place - Cardiovascular Rhythm: regular Heart sounds: normal: S1, S2 Abnormal Heart Sounds: no systolic murmur, no diastolic murmur, no rub, no S3 Gallop, no S4 Gallop, no click, no other - Gastrointestinal General gastrointestinal: normal bowel sounds, soft nontender nondistended - Integumentary Integumentary: no rash - Neurologic Neurologic: CNII-XII intact, right upper extremity 5/5 motor per no sensory deficit left upper extremity contracture difficulty lifting the arm 1/5 motor power no sensory deficit. Left lower extremity 0/5 power normal tone right lower extremity 3/5 power no sensory deficit - Musculoskeletal Musculoskeletal: Wheelchair bound, strength equal bilaterally - Psychiatric Psychiatric: A&O x's 3, appropriate affect - Labs CBC & Chem 7: 08/29/18 08:24 08/28/18 08:53 Labs: Abnormal Lab Results - Last 24 Hours (Table) 08/29/18 Range/Units 08:24 Lymphocytes # 0.6 L (1.0-4.8) k/uL Microbiology - Last 24 Hours (Table) 08/28/18 10:21 Urine Culture - Preliminary Urine,Voided Assessment and Plan Plan: #1 left breast invasive ductal carcinoma postoperative bilateral mastectomy with BRAIN drains in place bilaterally. Incentive spirometry. Lovenox for DVT prophylaxis. Pain medication per primary team. #2 residual left upper and left lower extremity weakness from MS continue Tecfidera #3 acute weakness in the right lower extremity concerning for MS exacerbation, ruled out by neurology. Neurology consult placed. No plan for IV Solu-Medrol #4 history of narcolepsy continue modafinil. #5 hypertension continue metoprolol 25 twice a day #6 contracture in the left upper extremity baclofen and gabapentin as needed for muscle cramps #7 osteoporosis since hold Fosamax while patient is in the hospital #8 CODE STATUS full code 9. Acute urinary tract infection secondary to chronic urinary tract infection, most likely present on admission. Prescription for Keflex has been sent to her pharmacy. Discharge plan: Home with [facility]. Impression and plan of care have been directed as dictated by the signing physician. Stephanie Schmitt nurse practitioner acting as scribe for signing physician.
--- NOTE | 2018-08-29 14:13 | CDI ---
Documentation Clarification Form Date: 08/29/2018 1:30:00 PM From: Brandy Garcia RN CCDS Admit Date: 08/27/2018 12:59:00 PM Patient Name: Chantel Richardson Visit Number: [id number] Discharge Date: ATTENTION: The Clinical Documentation Specialists (CDI) and [facility] Coding Staff appreciate your assistance in clarifying documentation. Please respond to the clarification below the line at the bottom and electronically sign. The CDI & [facility] Coding staff will review the response and follow-up if needed. Please note: Queries are made part of the Legal Health Record. If you have any questions, please contact the author of this message via ITS. Dr. Ai Cunningham Urinary retention was documented in your Progress note dated 08/27/2018 Low grad temperature yesterday suspect related to atelectasis, urinary tract infection . Your progress note 08/29/2018 History/Risk Factors: 57 year old female presented to [facility] for elective Bilateral mastectomy Medical history of MS , left breast invasive ductal carcinoma . Clinical Indicators: Per the medical record She has multiple sclerosis and states that after general anesthesia she sometimes has difficulty with urination.. Lab findings: ua urine tubid , positive nitrates large leukocytes esterase. Urine bacteria moderate. Vital Signs: 152/79 91 98.7 18 96% ra Other Clinical Indicators: Treatment: Rocpehin ivpb In order to accurately reflect this patients severity of illness, please clarify if the urinary tract infection is a result of the surgical procedure. o Yes o No o Other, please specify o Unable to determine (Last Revision: May 2017) The urinary tract infection was most likely present prior to the procedure. It was not felt to be secondary to the mastectomy. MTDD
[2018-08-30] MEDS: HEPARIN SODIUM,PORCINE 5,000 UNIT/ML 1 ML VIAL SQ SCH ×2 (01:29→07:35)
[2018-08-30 05:19] VITALS: BP 124/82; PULSE 85; TEMP 98.3
[2018-08-30 07:34] LABS: Basophils % (A) 1 %; Eosinophils # (A) 0.2 k/uL (0-0.7); Eosinophils % (A) 3 %; HCT 36.7 % (34.0-46.0); Lymphocytes # (A) 0.7 k/uL (1.0-4.8); Lymphocytes % (A) 12 %; MCH 29.4 pg (25.0-35.0); MCHC 32.7 g/dL (31.0-37.0); MCV 89.8 fL (80.0-100.0); Mean Platelet Volume 6.5; Monocytes # (A) 0.4 k/uL (0-1.0); Monocytes % (A) 7 %; Neutrophils % (A) 75 %; Platelet Count 210 k/uL (150-450); RBC 4.08 m/uL (3.80-5.40); RDW 14.3 % (11.5-15.5); WBC 5.4 k/uL (3.8-10.6)
[2018-08-30] MEDS: GABAPENTIN 100 MG CAP PO SCH ×2 (07:34→13:15)
[2018-08-30] MEDS: BACLOFEN 10 MG TAB PO SCH (07:34)
[2018-08-30] MEDS: METOPROLOL TARTRATE 25 MG TAB PO SCH (07:34)
[2018-08-30] MEDS: PANTOPRAZOLE 40 MG TABLET PO SCH (07:35)
[2018-08-30] MEDS: FUROSEMIDE 10 MG/ML 2 ML VIAL IV SCH (07:35)
[2018-08-30] MEDS: MODAFINIL 200 MG TAB PO SCH (07:35)
[2018-08-30] MEDS: TECFIDERA PO SCH (07:36)
--- NOTE | 2018-08-30 11:23 | P.PN ---
Subjective Progress Note Date: 08/30/18 Principal diagnosis: Bilateral mastectomy Patient doing well today. Denies any significant discomfort. Drain output has become more serous in nature. Hemoglobin stable at 12.0. Objective - Vital Signs Vital signs: Vital Signs Temp 98.3 F 08/30/18 05:00 Pulse 85 08/30/18 05:00 Resp 16 08/30/18 05:00 BP 124/82 08/30/18 05:00 Pulse Ox 97 08/30/18 05:00 Intake & Output 08/29/18 08/30/18 08/30/18 18:59 06:59 18:59 Intake Total 650 Output Total 233 93 Balance 417 -93 Intake: Oral 650 Output: Drainage 233 93 left chest drain #1 45 22 left chest drain #2 20 22 right chest drain #3 48 4 right chest drain #4 120 45 Other: Voiding Method Bedpan Bedpan # Voids 5 1 - Exam Bilateral chest wall without sizable hematoma, no significant ecchymosis, mild tenderness - Labs CBC & Chem 7: 08/30/18 06:33 08/28/18 08:53 Labs: Abnormal Lab Results - Last 24 Hours (Table) 08/30/18 Range/Units 06:33 Lymphocytes # 0.7 L (1.0-4.8) k/uL Microbiology - Last 24 Hours (Table) 08/28/18 10:21 Urine Culture - Final Urine,Voided Klebsiella pneumoniae Assessment and Plan (1) Breast cancer, right Narrative/Plan: Patient doing fairly well. Hemoglobin is stable. She would like to go home today. Will discharge with outpatient follow-up planned. Current Visit: Yes Status: Acute Code(s): C50.911 - MALIGNANT NEOPLASM OF UNSP SITE OF RIGHT FEMALE BREAST SNOMED Code(s): 703024973
--- NOTE | 2018-08-30 12:26 | P.PN ---
Subjective Progress Note Date: 08/30/18 Principal diagnosis: Breast cancer Patient continued to be hemodynamically stable no major events reported by nursing staff patient currently is denying chest pain shortness breath nausea vomiting abdominal pain dizziness lightheadedness or blurry vision patient is excited about going home today as she was kept overnight for observation Objective - Vital Signs Vital signs: Vital Signs Temp 98.3 F 08/30/18 05:00 Pulse 85 08/30/18 05:00 Resp 16 08/30/18 05:00 BP 124/82 08/30/18 05:00 Pulse Ox 97 08/30/18 05:00 Intake & Output 08/29/18 08/30/18 08/30/18 18:59 06:59 18:59 Intake Total 650 Output Total 233 93 50 Balance 417 -93 -50 Intake: Oral 650 Output: Drainage 233 93 50 left chest drain #1 45 22 left chest drain #2 20 22 right chest drain #3 48 4 20 right chest drain #4 120 45 30 Other: Voiding Method Bedpan Bedpan Bedpan Diaper # Voids 5 1 - Exam Gen.: in stated age, no acute distress Heart: Normal S1-S2 Lungs: Clear to auscultation bilaterally Abdomen: Soft, no tenderness, positive bowel sounds in all 4 quadrant no guarding or rebound Skin: No new rash Psych: Alert and oriented 3 Neuro: No focal deficit - Labs CBC & Chem 7: 08/30/18 06:33 08/28/18 08:53 Labs: Abnormal Lab Results - Last 24 Hours (Table) 08/30/18 Range/Units 06:33 Lymphocytes # 0.7 L (1.0-4.8) k/uL Microbiology - Last 24 Hours (Table) 08/28/18 10:21 Urine Culture - Final Urine,Voided Klebsiella pneumoniae Assessment and Plan Assessment: 1. Klebsiella UTI. 2. Multiple sclerosis. 3. Debility and deconditioning. 4. Left breast invasive ductal carcinoma status post bilateral mastectomy. 5. Osteoporosis Urine culture reviewed we'll discharge patient's on Keflex to follow-up with p [facility] care physician in 3 days patient would like to go home without the begum OT evaluation as she said that she has all the equipment at home and she'll do much better than being in the hospital surgery cleared the patient and patient will be discharged shortly
--- NOTE | 2018-08-30 12:27 | P.DS ---
Providers Date of admission: 08/27/18 12:59 Attending physician: Ai Cunningham Consults: 08/26/18 17:47 Consult Physician Routine Consulting Provider: Eduardo Salvador Consult Reason/Comments: medical managment Do you want consulting provider notified?: Yes 08/27/18 13:08 Consult Physician Routine Consulting Provider: Carlos Escamilla Reason/Comments: ms exacerbation Do you want consulting provider notified?: Yes Primary care physician: Eduardo Salvador [facility] Course: 1. Klebsiella UTI. 2. Multiple sclerosis. 3. Debility and deconditioning. 4. Left breast invasive ductal carcinoma status post bilateral mastectomy. 5. Osteoporosis Urine culture reviewed we'll discharge patient's on Keflex to follow-up with primary care physician in 3 days patient would like to go home without the begum OT evaluation as she said that she has all the equipment at home and she'll do much better than being in the hospital surgery cleared the patient and patient will be discharged shortly Plan - Discharge Summary Discharge Rx Participant: No New Discharge Prescriptions: New Cephalexin [Keflex] 500 mg PO Q8HR #9 cap No Action Ergocalciferol [Vitamin D2] 50,000 unit PO PECK traMADol HCl [Ultram] 50 mg PO TID PRN PRN Reason: Pain Ranitidine HCl [Zantac] 150 mg PO HS Ibuprofen [Motrin] 800 mg PO TID Baclofen 10 mg PO TID Nystatin 100,000 Unit/gm Oint [Mycostatin Oint] 1 applic TOPICAL BID PRN PRN Reason: Rash Metoprolol Tartrate [Lopressor] 25 mg PO BID Wheat Dextrin [Benefiber] 5 ml PO DAILY Gabapentin [Neurontin] 100 mg PO QID Cinnamon Bark [Cinnamon] 500 mg PO DAILY Calcium Citrate 500 mg PO DAILY Ascorbic Acid [Vitamin C with Renee Hips] 500 mg PO DAILY Alendronate Sodium [Fosamax] 70 mg PO PECK Multivitamin [Multivitamins Adult Gummies] 2 tab PO DAILY Fish Oil(Dose Unknown) 1 cap PO DAILY Cannabidiol (Cbd) Extract [Epidiolex] 6 drops MUCOUS MEM HS PRN PRN Reason: Pain Modafinil [Provigil] 200 mg PO DAILY Dimethyl Fumarate [Tecfidera] 120 mg PO BID Triamcinolone 0.5% Cream [Kenalog 0.5% Cream] 1 applic TOPICAL DAILY PRN PRN Reason: Rash Meclizine HCl 12.5 mg PO DAILY PRN PRN Reason: Vertigo Pantoprazole Sodium [Protonix] 20 mg PO DAILY Inulin/Chromium Picolinate [Fiber Gummies Chew] 2 tab PO DAILY Discharge Medication List Ergocalciferol [Vitamin D2] 50,000 unit PO PECK 12/31/14 [History] Ibuprofen [Motrin] 800 mg PO TID 12/31/14 [History] Ranitidine HCl [Zantac] 150 mg PO HS 12/31/14 [History] traMADol HCl [Ultram] 50 mg PO TID PRN 12/31/14 [History] Ascorbic Acid [Vitamin C with Renee Hips] 500 mg PO DAILY 05/22/18 [History] Baclofen 10 mg PO TID 05/22/18 [History] Calcium Citrate 500 mg PO DAILY 05/22/18 [History] Cinnamon Bark [Cinnamon] 500 mg PO DAILY 05/22/18 [History] Gabapentin [Neurontin] 100 mg PO QID 05/22/18 [History] Metoprolol Tartrate [Lopressor] 25 mg PO BID 05/22/18 [History] Nystatin 100,000 Unit/gm Oint [Mycostatin Oint] 1 applic TOPICAL BID PRN 05/22/18 [History] Wheat Dextrin [Benefiber] 5 ml PO DAILY 05/22/18 [History] Alendronate Sodium [Fosamax] 70 mg PO PECK 06/26/18 [History] Cannabidiol (Cbd) Extract [Epidiolex] 6 drops MUCOUS MEM HS PRN 06/26/18 [History] Fish Oil(Dose Unknown) 1 cap PO DAILY 06/26/18 [History] Multivitamin [Multivitamins Adult Gummies] 2 tab PO DAILY 06/26/18 [History] Dimethyl Fumarate [Tecfidera] 120 mg PO BID 07/31/18 [History] Meclizine HCl 12.5 mg PO DAILY PRN 07/31/18 [History] Modafinil [Provigil] 200 mg PO DAILY 07/31/18 [History] Pantoprazole Sodium [Protonix] 20 mg PO DAILY 07/31/18 [History] Triamcinolone 0.5% Cream [Kenalog 0.5% Cream] 1 applic TOPICAL DAILY PRN 07/31/18 [History] Inulin/Chromium Picolinate [Fiber Gummies Chew] 2 tab PO DAILY 08/20/18 [History] Cephalexin [Keflex] 500 mg PO Q8HR #9 cap 08/29/18 [Rx] Follow up Appointment(s)/Referral(s): Eduardo Salvador MD [Primary Care Provider] - 1 Week (patient to call for follow-up appointment on Saturday when office is open) Patient Instructions/Handouts: Cephalexin (By mouth), Breast Cancer in Women (DC), Altered Mental Status (ED) Activity/Diet/Wound Care/Special Instructions: [facility] [place] [facility]: [phone] Prescription in chart from Dr. Chavo Jasso for [employer] for transportation -[phone] bus runs till after 10pm Saturday and Sat
== END 2018-08-30 14:40 | disposition home health service (06) | DRG 580 ==
LOC: OR 09:26 → 3NMEDONC 19:36 → OR 08-27 12:59 → OBSVTOIN 08-27 12:59 → 3NMEDONC 08-27 12:59 → UNDOADMOB 08-27 14:57
PROVIDERS: ADMIT Surgery; ATTEND Surgery
PROC: 0HTV0ZZ Resection of Bilateral Breast, Open Approach (ICD-10-PCS; 2018-08-26)
PROC: 07B60ZZ Excision of Left Axillary Lymphatic, Open Approach (ICD-10-PCS; principal; 2018-08-26 13:15)
DX: D05.01 Lobular carcinoma in situ of right breast (principal); N39.0 Urinary tract infection, site not specified; Z68.42 Body mass index [BMI] 45.0-49.9, adult; G35 Multiple sclerosis; E66.01 Morbid (severe) obesity due to excess calories; C50.912 Malignant neoplasm of unspecified site of left female breast; B96.1 Klebsiella pneumoniae [K. pneumoniae] as the cause of diseases classified elsewhere; I10 Essential (primary) hypertension; K21.9 Gastro-esophageal reflux disease without esophagitis; R60.9 Edema, unspecified; M79.7 Fibromyalgia; M81.0 Age-related osteoporosis without current pathological fracture; Z79.83 Long term (current) use of bisphosphonates; Z79.899 Other long term (current) drug therapy; Z87.891 Personal history of nicotine dependence; Z99.3 Dependence on wheelchair; Z90.49 Acquired absence of other specified parts of digestive tract; Z90.710 Acquired absence of both cervix and uterus; Z82.49 Family history of ischemic heart disease and other diseases of the circulatory system; Z83.3 Family history of diabetes mellitus; Z80.3 Family history of malignant neoplasm of breast; Z80.42 Family history of malignant neoplasm of prostate; Z80.0 Family history of malignant neoplasm of digestive organs
CPT/HCPCS: 38792; 80053; 81001; 85025; 87077; 87086; 87186; 88307; 88331; 88341; 88342

== ENCOUNTER → 2018-09-11 | Outpatient (CLI) | payer MEDICARE ==
--- NOTE | 2018-09-11 15:02 | P.PN ---
Progress Note - Text Progress Note Date: 09/11/18 Chantel Rihcardson is status post bilateral [place] [id number]. Postoperatively she is done very well. Of significance is the fact that she has multiple sclerosis and has limited mobility. The patient at this time comes for drain removal. She has 2 drains on the right and 2 drains on the left. Drain #1 and 2 on the left, entry #3 and 4 on the right. All these with less than 30 mL/ 24 hours for the past several days. The lesion on the left side was ER/WI positive HER-2/agnes negative. Physical exam: Lungs: Clear Heart: Regular rate and rhythm Incisions: Clean and dry bilateral BRAIN drains serous output minimal the past several days Impression: 1. Patient status post bilateral mastectomy with left sentinel node biopsy 2. Multiple sclerosis 3. BRAIN output minimal of the past several days Plan: 1. DC BRAIN drains 2. Follow-up with medical oncology as the lesion on the left was ER/WI positive 3. Follow-up here in 4 months time I discussed with the patient and her sister that she may develop a seroma she does see her back in the office for aspiration. CC: Dr. Salvador
== END | disposition home or self-care (01) ==
DX: Z53.9 Procedure and treatment not carried out, unspecified reason (principal)

== ENCOUNTER → 2019-01-08 | Outpatient (CLI) | payer MEDICARE ==
[2019-01-08 11:49] VITALS: BP 149/84; PULSE 69; RESP 18; TEMP 98.1; BMI 42.9
--- NOTE | 2019-01-08 12:33 | P.PN ---
Subjective Progress Note Date: 01/08/19 Principal diagnosis: left breast [id number]+Her2-G2; Stage 1A The patient is a 57-year-old white female who initially presented for breast evaluation secondary to a radiographic abnormality in the left breast. Core biopsy was obtained and revealed epithelial atypia. However, further workup revealed a posterior BIRADS 5 lesion in the left breast which was not seen on ultrasound, any areas of microcalcification of both breasts which were of concern. The patient subsequently underwent a bilateral needle localization breast biopsy. There were 3 areas biopsied in the left breast and one area in the right breast. The reason for operative biopsy was secondary to the fact t hat the patient has multiple sclerosis was unable to lay on the stereotactic biopsy table. We will tentatively schedule this for her at [facility] however she was unable to obtain transportation. She therefore opted for needle localization and excisional biopsy of the areas of concern in the left breast and one area in the right breast. 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 The second area in the left breast has fibrocystic changes. The area of malignancy was completely excised. The patient however is not a candidate for radiation therapy secondary to her MS and difficulty in transportation and being positioned for radiation to be performed. She was given the option of meeting with the radiation oncologist to discuss this however she did not wish to consider radiation therapy. The patient subsequently underwent bilateral mastectomies with a left sentinel node biopsy on August 26, 2018. The patient did not have any radiation therapy, she did not have chemotherapy. She is on anastrozole. She is having hot flashes on the medication. She is following with Dr. Cool. The patient states approximately a month ago she started noting some mid thoracic back discomfort. It is intermittent in nature. She is uncertain as to whether she is sitting in her chair more frequently. Family history: 1. Medical: Breast cancer bilaterally 2. Father: Prostate cancer 2. Paternal uncle colon cancer uncertain of the type Hormonal history: Menarche: 11 Pregnancies: None, hysterectomy at 35 for enlarged uterus did not take her ovaries Menopause: Hysterectomy at 35 control pills: Negative Hormones: Negative Past surgical history: Left ankle Hysterectomy Cholecystectomy Past medical history: 1. Multiple sclerosis 2. Hypertension Social history: Smoke: Stopped 10 years ago Alcohol: Negative Drugs: CBD at night to sleep - Constitutional Comment: Multiple sclerosis diagnosed in 2002 Hot flashes - EENT Eyes: bilateral blurred vision, denies pain Ears: deny: decreased hearing, tinnitus Ears, nose, mouth and throat: Reports headache - Breasts Breasts: bilateral: as per HPI - Cardiovascular Cardiovascular: Reports high blood pressure - Respiratory Respiratory: Denies cough, Denies 7 - Gastrointestinal Comment: Recent colonoscopy awaiting results - Genitourinary (Female) Genitourinary: Denies dysuria, Denies hematuria - Menstruation Menstruation: Reports post hysterectomy - Musculoskeletal Comment: Multiple sclerosis, left-sided weakness - Integumentary Integumentary: Denies pruritus, Denies rash - Neurological Comment: Multiple sclerosis left-sided weakness - Psychiatric Psychiatric: Denies anxiety, Denies depression - Endocrine Endocrine: Reports weight change, Denies fatigue - Hematologic/Lymphatic Comment: Uses Motrin - Allergic/Immunologic Allergic/Immunologic: Reports as per HPI Past Medical History Past Medical History: Fibromyalgia, GERD/Reflux, Hypertension, Musculoskeletal Disorder Additional Past Medical History / Comment(s): MS, palpitations, History of Any Multi-Drug Resistant Organisms: None Reported Past Surgical History: Cholecystectomy, Hysterectomy, Orthopedic Surgery Additional Past Surgical History / Comment(s): ORIF left ankle, left breast biopsy Past Anesthesia/Blood Transfusion Reactions: No Reported Reaction Past Psychological History: No Psychological Hx Reported Smoking Status: Former smoker Past Alcohol Use History: None Reported Additional Past Alcohol Use History / Comment(s): quit smoking 20 yrs ago, smoked since age 17, 1/2-1 PPD Past Drug Use History: Marijuana Additional Drug Use History / Comment(s): CBD oil - Past Family History Mother Family Medical History: Cancer Additional Family Medical History / Comment(s): breast Father Family Medical History: Cancer Additional Family Medical History / Comment(s): prostate Objective - Vital Signs Vital signs: Vital Signs Temp 98.1 F 01/08/19 11:43 Pulse 69 01/08/19 11:43 Resp 18 01/08/19 11:43 BP 149/84 01/08/19 11:43 Pulse Ox 98 01/08/19 11:43 Intake & Output 01/07/19 01/08/19 01/08/19 18:59 06:59 18:59 Weight 120.656 kg - Exam BMI 42.9 - Constitutional General appearance: Present: obese - EENT Eyes: Present: EOMI ENT: Present: hearing grossly normal - Neck Details: no cervical adenopathy - Respiratory Respiratory: bilateral: CTA - Cardiovascular Rhythm: regular Heart sounds: normal: S1, S2 - Gastrointestinal Gastrointestinal Comment(s): normal bowel sounds General gastrointestinal: Present: soft - Integumentary Integumentary Comment(s): incisions chest wall clean and dry - Musculoskeletal Musculoskeletal Comment(s): wheel chair bound - Psychiatric Psychiatric: Present: A&O x's 3, appropriate affect, intact judgment & insight - Additional findings Additional findings: Chest wall: Right chest wall incision clean and dry no evidence of any residual disease Left chest wall: Incision clean and dry no evidence of any recurrent cancer Patient does have bilateral dog ears medially and bilateral residual accessory axillary tissue, she states that the residual tissue was uncomfortable at times Assessment and Plan Assessment: Impression: 1. Stage IA left breast cancer 2. Lobular carcinoma in situ status post mastectomy right breast 3. Multiple sclerosis wheelchair bound 4. Patient presently on anastrozole 5. mid thoracic back discomfort Plan: 1. No evidence of recurrent cancer 2. Patient with symptomatic axillary tissue and prominent medial dogears may consider revision of mastectomy scars in the future 3. Continue anastrozole 4. Follow up here in 4 months time 5. Continue medical management of medical conditions 6. patient will accept portable x-rays of thoracic spine, these will be ordered Encounter approx. 25 minutes, > 50% discussion CC: Dr. Salvador
[2019-01-08 13:27] LABS: Basophils % (A) 1 %; Eosinophils # (A) 0.1 k/uL (0-0.7); Eosinophils % (A) 2 %; HCT 40.8 % (34.0-46.0); Lymphocytes # (A) 0.6 k/uL (1.0-4.8); Lymphocytes % (A) 10 %; MCHC 34.4 g/dL (31.0-37.0); MCV 90.2 fL (80.0-100.0); Mean Platelet Volume 5.8; Monocytes # (A) 0.4 k/uL (0-1.0); Monocytes % (A) 6 %; Neutrophils # (A) 4.8 k/uL (1.3-7.7); Neutrophils % (A) 80 %; Platelet Count 206 k/uL (150-450); RBC 4.52 m/uL (3.80-5.40); RDW 13.8 % (11.5-15.5)
--- NOTE | 2019-01-08 14:39 | XR ---
EXAMINATION TYPE: XR thoracic spine complete DATE OF EXAM: 01/08/2019 Comparison: None Clinical History: 58-year-old female upper back pain, especially on the left, M54.6 Findings: 12 rib bearing thoracic vertebral bodies. All pedicles are visualized. Moderate degenerative disc dis ease midthoracic spine. Minimal anterior wedging of a couple mid thoracic vertebral bodies with accen tuated midthoracic kyphosis. There is grade 1 anterolisthesis at C4-C5 and C5-C6. Below this level and at the cervicothoracic junc tion, visualization is limited due to overlying patient's shoulders. IMPRESSION: 1. Accentuated mid thoracic kyphosis secondary to minimal anterior wedging of a couple mid thoracic v ertebral bodies. Findings suggest age indeterminate mild compression injuries. Clinically correlate. 2. Moderate degenerative disc disease midthoracic spine. 3. Grade 1 anterolisthesis at C4-C5 and C5-C6 seen on swimmer's view, likely on a degenerative basis. Levels below C5-C6 including the cervicothoracic junction is not well evaluated due to overlying pat ient's shoulders.
[2019-01-08 20:51] LABS: African American GFR (CKD) 109.9 (60.0-200.0); Albumin 4.7 g/dL (3.80-4.90); Albumin/Globulin Ratio 2.35 (1.60-3.17); Anion Gap 11.4 mmol/L (4.00-12.00); BUN/Creat Ratio 15.71 Ratio (12.00-20.00); Calcium 9.6 mg/dL (8.7-10.3); Carbon Dioxide 26.6 mmol/L (21.6-31.8); Non-African American GFR(CKD) 94.8 (60.0-200.0); Potassium 4.7 mmol/L (3.5-5.5); Total Bilirubin 0.4 mg/dL (0.3-1.2); Total Protein 6.7 g/dL (6.2-8.2)
== END | disposition home or self-care (01) ==
LOC: WWCWWP 11:35
PROVIDERS: ATTEND Surgery
DX: M51.34 Other intervertebral disc degeneration, thoracic region (principal); M40.204 Unspecified kyphosis, thoracic region; M43.02 Spondylolysis, cervical region; T50.2X5A Adverse effect of carbonic-anhydrase inhibitors, benzothiadiazides and other diuretics, initial encounter
CPT/HCPCS: 36415; 72072; 80053; 85025

== ENCOUNTER → 2019-10-29 | Outpatient (CLI) | payer MEDICARE ==
[2019-10-29 11:29] VITALS: BP 132/51; PULSE 59; RESP 18; TEMP 98.3
--- NOTE | 2019-10-29 11:37 | P.PN ---
Subjective Progress Note Date: 10/29/19 Principal diagnosis: left breast stage IA invasive ductal cancer, [id number]+Her2-G2 The patient is a 59 -year-old white female who initially presented for breast evaluation secondary to a radiographic abnormality in the left breast. Core biopsy was obtained and revealed epithelial atypia. However, further workup revealed a posterior BIRADS 5 lesion in the left breast which was not seen on ultrasound, and microcalcification of both breasts which were of concern. The patient subsequently underwent a bilateral needle localization breast biopsy on 08-05-18. There were multiple areas biopsied in the left breast and one area in the right breast. The reason for operative biopsy was secondary to the fact that the patient has multiple sclerosis was unable to lay on the stereotactic biopsy table. She was tentatively schedule this for her [facility] however she was unable to obtain transportation. She therefore opted for needle localization and excisional biopsy of the areas of concern in the left breast and one area in the right breast. 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 The second area in the left breast has fibrocystic changes. The area of malignancy was completely excised. The patient however was not a candidate for radiation therapy secondary to her MS and difficulty in transportation and being positioned for radiation to be performed. She was given the option of meeting with the radiation oncologist to discuss this however she did not wish to consider radiation therapy. The patient subsequently underwent bilateral mastectomies with a left sentinel node biopsy on August 26, 2018. The patient did not have any radiation therapy, she did not have chemotherapy. She is on anastrozole. She is having hot flashes on the medication. She is following with Dr. Cool. The patient states approximately a month ago she started noting some mid thoracic back discomfort. It is intermittent in nature. She is uncertain as to whether she is sitting in her chair more frequently. Thoracic spine x-rays were ordered and reviewed, no evidence of any metastatic disease was noted. Degenerative disease was identified. Patient is doing well at this time with no complaints of masses or lesions on the chest wall. Family history: 1. Medical: Breast cancer bilaterally 2. Father: Prostate cancer 2. Paternal uncle colon cancer uncertain of the type Hormonal history: Menarche: 11 Pregnancies: None, hysterectomy at 35 for enlarged uterus did not take her ovaries Menopause: Hysterectomy at 35 control pills: Negative Hormones: Negative Past surgical history: Left ankle Hysterectomy Cholecystectomy Past medical history: 1. Multiple sclerosis 2. Hypertension Social history: Smoke: Stopped 12 years ago Alcohol: Negative Drugs: CBD at night to sleep - Constitutional Comment: Multiple sclerosis diagnosed in 2002 Hot flashes - EENT Eyes: bilateral blurred vision, denies pain Ears: deny: decreased hearing, tinnitus Ears, nose, mouth and throat: Reports headache - Breasts Breasts: bilateral: as per HPI - Cardiovascular Cardiovascular: Reports high blood pressure - Respiratory Respiratory: Denies cough - Gastrointestinal Comment: Recent colonoscopy awaiting results - Genitourinary (Female) Genitourinary: Denies dysuria, Denies hematuria - Menstruation Menstruation: Reports post hysterectomy - Musculoskeletal Comment: Multiple sclerosis, left-sided weakness - Integumentary Integumentary: Denies pruritus, Denies rash - Neurological Comment: Multiple sclerosis left-sided weakness - Psychiatric Psychiatric: Denies anxiety, Denies depression - Endocrine Endocrine: Reports weight change, Denies fatigue - Hematologic/Lymphatic Comment: Uses Motrin - Allergic/Immunologic Allergic/Immunologic: Reports as per HPI Objective - Exam BMI 42.3 - Constitutional General appearance: Present: obese - EENT Eyes: Present: EOMI ENT: Present: hearing grossly normal - Neck Neck: Present: normal ROM - Respiratory Respiratory: bilateral: CTA - Cardiovascular Rhythm: regular Heart sounds: normal: S1, S2 - Gastrointestinal General gastrointestinal: Present: normal bowel sounds, soft - Integumentary Integumentary: Present: normal turgor - Musculoskeletal Musculoskeletal Comment(s): wheel chair dependant - Psychiatric Psychiatric: Present: A&O x's 3, appropriate affect, intact judgment & insight - Additional findings Additional findings: Chest Wall Exam: Incision right and left chest wall clean and dry no evidence of recurrent disease Right axilla: No adenopathy of concern Left axilla: No adenopathy of concern Assessment and Plan Assessment: Impression: 1. Stage IA left breast cancer no evidence of recurrence 2. Lobular carcinoma in situ's status post mastectomy right breast 3. Multiple sclerosis wheelchair bound 4. On anastrozole with hot flashes following with medical oncology 5. Stable midthoracic back discomfort felt to be degenerative disease Plan: 1. No evidence of recurrent cancer continue to follow clinically 2. Continue anastrozole 3. Follow-up here in 6 months for surveillance 4. Patient on her last visit was complaining of some discomfort related to some prominent medial dogears however at this time she states they're not bothering her and is not interested in any scar revision CC: Dr. Salvador encounter 25 minutes, > 50% of time in planning and counselling
== END | disposition home or self-care (01) ==
LOC: WWCWWP 11:05
PROVIDERS: ATTEND Surgery
DX: Z53.9 Procedure and treatment not carried out, unspecified reason (principal)

== ENCOUNTER → 2020-04-29 | Outpatient (CLI) | payer MEDICARE ==
[2020-04-29 11:01] VITALS: BP 151/88; PULSE 71; RESP 18; TEMP 98.3
--- NOTE | 2020-04-29 11:40 | P.PN ---
Subjective Progress Note Date: 04/29/20 Principal diagnosis: left breast stage IA invasive ductal cancer, [id number]+Her2-G2 left breast stage IA invasive ductal cancer, [id number]/[place]+Her2-G2, hotflashes The patient is a 59 -year-old white female who initially presented for breast evaluation secondary to a radiographic abnormality in the left breast. Core biopsy was obtained and revealed epithelial atypia. However, further workup revealed a posterior BIRADS 5 lesion in the left breast which was not seen on ultrasound, and microcalcification of both breasts which were of concern. The patient subsequently underwent a bilateral needle localization breast biopsy on 08-05-18. There were multiple areas biopsied in the left breast and one area in the right breast. The reason for operative biopsy was secondary to the fact that the patient has multiple sclerosis was unable to lay on the stereotactic biopsy table. She was tentatively schedule this for her at [facility] however she was unable to obtain transportation. She therefore opted for needle localization and excisional biopsy of the areas of concern in the left breast and one area in the right breast. 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 The second area in the left breast has fibrocystic changes. The area of malignancy was completely excised. The patient however was not a candidate for radiation therapy secondary to her MS and difficulty in transportation and being positioned for radiation to be performed. She was given the option of meeting with the radiation oncologist to discuss this however she did not wish to consider radiation therapy. The patient subsequently underwent bilateral mastectomies with a left sentinel node biopsy on August 26, 2018. The patient did not have any radiation therapy, she did not have chemotherapy. She is on anastrozole. She is having hot flashes on the medication. She is following with Dr. Cool. On her last visit she had complained of some mid thoracic back discomfort. It is intermittent in nature. Thoracic spine x-rays were ordered and reviewed in the past and no evidence of any metastatic disease was noted. Degenerative disease was identified. The patient is having intermittent hot flashes. She does not know what precipitates these however, when she gets overheated it can affect her multiple sclerosis. Patient is doing well at this time with no complaints of masses or lesions on the chest wall. Family history: 1. Medical: Breast cancer bilaterally 2. Father: Prostate cancer 2. Paternal uncle colon cancer uncertain of the type Hormonal history: Menarche: 11 Pregnancies: None, hysterectomy at 35 for enlarged uterus did not take her ovaries Menopause: Hysterectomy at 35 control pills: Negative Hormones: Negative Past surgical history: Left ankle Hysterectomy Cholecystectomy Past medical history: 1. Multiple sclerosis 2. Hypertension Social history: Smoke: Stopped 12 years ago Alcohol: Negative Drugs: was taking CBD at night to sleep, but stopped 6 months ago - Constitutional Comment: Multiple sclerosis diagnosed in 2002 Hot flashes - EENT Eyes: bilateral blurred vision, denies pain Ears: deny: decreased hearing, tinnitus Ears, nose, mouth and throat: Reports headache - Breasts Breasts: bilateral: as per HPI - Cardiovascular Cardiovascular: Reports high blood pressure - Respiratory Respiratory: Denies cough - Gastrointestinal Comment: Recent colonoscopy awaiting results - Genitourinary (Female) Genitourinary: Denies dysuria, Denies hematuria - Menstruation Menstruation: Reports post hysterectomy - Musculoskeletal Comment: Multiple sclerosis, left-sided weakness - Integumentary Integumentary: Denies pruritus, Denies rash - Neurological Comment: Multiple sclerosis left-sided weakness - Psychiatric Psychiatric: Denies anxiety, Denies depression - Endocrine Endocrine: Reports weight change, Denies fatigue - Hematologic/Lymphatic Comment: Uses Motrin - Allergic/Immunologic Allergic/Immunologic: Reports as per HPI Objective - Vital Signs Vital signs: Vital Signs Temp 98.3 F 04/29/20 10:54 Pulse 71 04/29/20 10:54 Resp 18 04/29/20 10:54 BP 151/88 04/29/20 10:54 Pulse Ox 98 04/29/20 10:54 Intake & Output 04/28/20 04/29/20 04/29/20 18:59 06:59 18:59 Weight 118.841 kg - Exam BMI 42.3 - Constitutional General appearance: Present: cooperative, obese - EENT Eyes: Present: EOMI ENT: Present: hearing grossly normal - Neck Neck: Present: normal ROM - Respiratory Respiratory: bilateral: CTA - Cardiovascular Rhythm: regular Heart sounds: normal: S1, S2 - Gastrointestinal General gastrointestinal: Present: soft - Integumentary Integumentary: Present: normal turgor - Musculoskeletal Musculoskeletal Comment(s): wheel chair bound - Psychiatric Psychiatric: Present: A&O x's 3, appropriate affect, intact judgment & insight - Additional findings Additional findings: chest wall: Right chest wall no evidence of any disease of concern Right axilla: No adenopathy of concern Left chest wall: No evidence of any recurrent disease Left axilla: No adenopathy of concern The patient does have bilateral medial dogears however she states that they don't really bother her. She has bilateral breast prosthesis. Assessment and Plan Assessment: Impression: 1. Multiple sclerosis 2. Hypertension 3. Stage IA left breast cancer no evidence of recurrence 4. On anastrozole with hot flashes following with medical oncology 5. Stable midthoracic back discomfort felt to be degenerative disease Plan: 1. Repeat examination in 6 months 2. Continue anastrozole/however she is going to discuss with Dr. Cool the quality of life/benefit ratio of taking this. 3. Bilateral medial dogears, however at this time and not bothering her and we'll follow for medical comorbidities scar revision is not a good option. Encounter 20 minutes, time spent reviewing medical records, examination and counselling. We have had quite an extensive discussion concerning anastrozole and the hot flashes. It may be that a different antihormone agent would be better tolerated for the patient. She is going to discuss this with medical oncology.
== END | disposition home or self-care (01) ==
LOC: WWCWWP 10:43
PROVIDERS: ATTEND Surgery
DX: C50.912 Malignant neoplasm of unspecified site of left female breast (principal); I10 Essential (primary) hypertension; G35 Multiple sclerosis; M51.34 Other intervertebral disc degeneration, thoracic region; N95.1 Menopausal and female climacteric states; Z79.811 Long term (current) use of aromatase inhibitors; Z87.891 Personal history of nicotine dependence

== ENCOUNTER → 2020-06-30 | Outpatient (CLI) | payer MEDICARE ==
[2020-06-30 11:11] LABS: Appearance,Urine Clear (Clear); Bilirubin,Urine Negative (Negative); Blood,Urine Negative (Negative); Color,Urine Light Yellow; Glucose,Urine (UA) Negative (Negative); Ketones,Urine Negative (Negative); Leukocyte Esterase,Urine Negative (Negative); Nitrite,Urine Negative (Negative); PH, Urine 6.5 (5.0-8.0); Protein,Urine Negative (Negative); Specific Gravity,Urine 1.012 (1.001-1.035); Urobilinogen,Urine <2.0 mg/dL (<2.0)
[2020-06-30 15:03] LABS: Basophils # (A) 0.04 X 10*3/uL (0.00-0.10); Basophils % (A) 0.6 %; Eosinophils # (A) 0.13 X 10*3/uL (0.04-0.35); Eosinophils % (A) 2.1 %; HCT 43.5 % (37.2-46.3); HGB 14.1 g/dL (12.0-15.0); Lymphocytes # (A) 0.79 X 10*3/uL (0.90-5.00); Lymphocytes % (A) 12.7 %; MCH 29.8 pg (27.0-32.0); MCHC 32.4 g/dL (32.0-37.0); Mean Platelet Volume 9.8 fL (9.5-12.2); Monocytes # (A) 0.41 X 10*3/uL (0.20-1.00); Monocytes % (A) 6.6 %; Neutrophils % (A) 77.5 %; Platelet Count 188 X 10*3/uL (140-440); RBC 4.73 X 10*6/uL (4.10-5.20); RDW 13.6 % (11.5-14.5)
[2020-06-30 19:32] LABS: African American GFR (CKD) 114.8 (60.0-200.0); Albumin 4.7 g/dL (3.80-4.90); Albumin/Globulin Ratio 2.47 (1.60-3.17); Anion Gap 15.1 mmol/L (4.00-12.00); BUN/Creat Ratio 21.67 Ratio (12.00-20.00); Calcium 9.2 mg/dL (8.7-10.3); Carbon Dioxide 22.9 mmol/L (21.6-31.8); Globulin 1.9 g/dL (1.6-3.3); Non-African American GFR(CKD) 99.1 (60.0-200.0); Potassium 4.7 mmol/L (3.5-5.5); Total Bilirubin 0.4 mg/dL (0.2-1.2); Total Protein 6.6 g/dL (6.2-8.2)
[2020-06-30 19:39] LABS: T4, Free (Free Thyroxine) 1.2 ng/dL (0.80-1.80)
== END | disposition home or self-care (01) ==
LOC: LABWHC1 09:57
PROVIDERS: ATTEND Psychiatry & Neurology Neurology
DX: G35 Multiple sclerosis (principal)
CPT/HCPCS: 36415; 80053; 81003; 84439; 84443; 85025; 87086

== ENCOUNTER → 2020-11-11 | Outpatient (CLI) | payer MEDICARE ==
[2020-11-11 11:35] VITALS: BP 155/83; PULSE 56; RESP 16; TEMP 98.1
--- NOTE | 2020-11-11 11:37 | P.PN ---
Subjective Progress Note Date: 11/11/20 Principal diagnosis: left breast stage IA invasive ductal cancer [id number]+Pr+Her2-G2 left breast stage IA invasive ductal cancer, [id number]/[place]+Her2-G2, hotflashes Chantel is a 60-year-old white female status post bilateral mastectomies with a left sentinel node biopsy on 08/26/2018. She did not have radiation therapy. She did not have chemotherapy. She is presently on aromasin. She is having hot flashes on the medication. These have improved after being switched from aromidex. She has no complaints related to any lumps masses or nodules on her chest wall. The patient has multiple sclerosis and it was felt that she could not handle radiation therapy of the lumpectomy were Then performed and that is why she opted for the bilateral mastectomy. Family history: 1. Medical: Breast cancer bilaterally 2. Father: Prostate cancer 2. Paternal uncle colon cancer uncertain of the type Hormonal history: Menarche: 11 Pregnancies: None, hysterectomy at 35 for enlarged uterus did not take her ovaries Menopause: Hysterectomy at 35 control pills: Negative Hormones: Negative Past surgical history: Left ankle Hysterectomy Cholecystectomy Past medical history: 1. Multiple sclerosis 2. Hypertension Social history: Smoke: prior stopped about 13 years ago Alcohol: Negative Drugs: negative - Constitutional Comment: Multiple sclerosis diagnosed in 2002 Hot flashes - EENT Eyes: bilateral blurred vision, denies pain Ears: deny: decreased hearing, tinnitus Ears, nose, mouth and throat: Reports headache - Breasts Breasts: bilateral: as per HPI - Cardiovascular Cardiovascular: Reports high blood pressure - Respiratory Respiratory: Denies cough - Gastrointestinal Comment: Recent colonoscopy awaiting results - Genitourinary (Female) Genitourinary: Denies dysuria, Denies hematuria - Menstruation Menstruation: Reports post hysterectomy - Musculoskeletal Comment: Multiple sclerosis, left-sided weakness - Integumentary Integumentary: Denies pruritus, Denies rash - Neurological Comment: Multiple sclerosis left-sided weakness - Psychiatric Psychiatric: Denies anxiety, Denies depression - Endocrine Endocrine: Reports weight change, Denies fatigue - Hematologic/Lymphatic Comment: Uses Motrin - Allergic/Immunologic Allergic/Immunologic: Reports as per HPI Objective - Constitutional General appearance: Present: cooperative - EENT Eyes: Present: EOMI ENT: Present: hearing grossly normal - Neck Neck: Present: normal ROM - Respiratory Respiratory: bilateral: CTA - Cardiovascular Rhythm: regular Heart sounds: normal: S1, S2 - Integumentary Integumentary: Present: normal turgor - Musculoskeletal Musculoskeletal Comment(s): uses a motorized wheel chair - Psychiatric Psychiatric: Present: A&O x's 3, appropriate affect, intact judgment & insight - Additional findings Additional findings: chest wall exam: Right chest wall: Incision clean and dry no evidence of cancer Right axilla: No adenopathy of concern Left chest wall: Incision clean and dry Evidence of recurrent cancer Left axilla: No adenopathy of concern Assessment and Plan Assessment: Impression: 1. Status post bilateral mastectomy for left breast stage IA invasive ductal carcinoma, patient is presently on Aromasin, she did not have any chemo or radiation therapy 2. History of multiple sclerosis/ wheel chair dependant 3. HTN Plan: 1. follow up in 6 months CC: DR. Salvador
== END | disposition home or self-care (01) ==
LOC: WWCWWP 10:39
PROVIDERS: ATTEND Surgery
DX: Z53.9 Procedure and treatment not carried out, unspecified reason (principal)

== ENCOUNTER → 2021-06-08 | Outpatient (CLI) | payer MEDICARE ==
[2021-06-08 10:28] VITALS: RESP 18
--- NOTE | 2021-06-08 10:54 | P.PN ---
Subjective Progress Note Date: 06/08/21 Principal diagnosis: left breast invasive ductal cancer left breast stage IA invasive ductal cancer [id number]+Pr+Her2-G2 Chantel is a 60-year-old white female status post bilateral mastectomies with a left sentinel node biopsy on 08/26/2018. She did not have radiation th erapy. She did not have chemotherapy. She is presently on aromasin. She is having hot flashes on the medication. These have improved after being switched from aromidex. She has no complaints related to any lumps masses or nodules on her chest wall. The patient has multiple sclerosis and it was felt that she could not handle radiation therapy if a lumpectomy were performed and that is why she opted for the bilateral mastectomy. She is not complaining of any lesions on her chest wall. She was daignosed with COVID in February of 2021. She has recovered well. Family history: 1. Medical: Breast cancer bilaterally 2. Father: Prostate cancer 2. Paternal uncle colon cancer uncertain of the type Hormonal history: Menarche: 11 Pregnancies: None, hysterectomy at 35 for enlarged uterus did not take her ovaries Menopause: Hysterectomy at 35 control pills: Negative Hormones: Negative Past surgical history: Left ankle Hysterectomy Cholecystectomy Past medical history: 1. Multiple sclerosis 2. Hypertension Social history: Smoke: prior stopped about 13 years ago Alcohol: Negative Drugs: negative - Constitutional Comment: Multiple sclerosis diagnosed in 2002 Hot flashes - EENT Eyes: bilateral blurred vision, denies pain Ears: deny: decreased hearing, tinnitus Ears, nose, mouth and throat: Reports headache - Breasts Breasts: bilateral: as per HPI - Cardiovascular Cardiovascular: Reports high blood pressure - Respiratory Respiratory: Denies cough - Gastrointestinal Comment: Recent colonoscopy awaiting results - Genitourinary (Female) Genitourinary: Denies dysuria, Denies hematuria - Menstruation Menstruation: Reports post hysterectomy - Musculoskeletal Comment: Multiple sclerosis, left-sided weakness - Integumentary Integumentary: Denies pruritus, Denies rash - Neurological Comment: Multiple sclerosis left-sided weakness - Psychiatric Psychiatric: Denies anxiety, Denies depression - Endocrine Endocrine: Reports weight change, Denies fatigue - Hematologic/Lymphatic Comment: Uses Motrin - Allergic/Immunologic Allergic/Immunologic: Reports as per HPI Objective - Vital Signs Vital signs: Vital Signs Temp Pulse Resp 18 06/08/21 10:22 BP Pulse Ox 99 06/08/21 10:22 Intake & Output 06/07/21 06/08/21 06/08/21 18:59 06:59 18:59 Weight 118.841 kg - Constitutional General appearance: Present: cooperative - EENT Eyes: Present: EOMI ENT: Present: hearing grossly normal - Neck Neck: Present: normal ROM - Respiratory Respiratory: bilateral: CTA - Cardiovascular Rhythm: regular Heart sounds: normal: S1, S2 - Gastrointestinal General gastrointestinal: Present: soft - Integumentary Integumentary: Present: normal turgor - Musculoskeletal Musculoskeletal Comment(s): wheel chair dependant - Psychiatric Psychiatric: Present: A&O x's 3, appropriate affect, intact judgment & insight - Additional findings Additional findings: Chest wall exam: Inspection: Incisions bilateral clean and dry Right chest wall: Examination does not reveal any palpable mass or lesion Right axilla: No adenopathy of concern Left chest wall: No mass or lesion no evidence of recurrent cancer Left axilla: No adenopathy of concern Assessment and Plan Assessment: Impression: status post bilateral mastectomy left stage IA invasive ductal cancer, patient is presently on Aromasin, she did not have any chemo or radiation therapy History of multiple sclerosis/wheelchair dependent Hypertension Plan: follow up in 6 months for examination follow up with medical oncology CC: Dr. Salvador
== END | disposition home or self-care (01) ==
LOC: WWCWWP 10:06
PROVIDERS: ATTEND Surgery
DX: Z53.9 Procedure and treatment not carried out, unspecified reason (principal)

== ENCOUNTER → 2021-06-22 | Outpatient (CLI) | payer MEDICARE ==
[2021-06-22 15:29] LABS: Basophils # (A) 0.07 X 10*3/uL (0.00-0.10); Eosinophils # (A) 0.49 X 10*3/uL (0.04-0.35); HGB 13.7 g/dL (12.0-15.0); Immature Grans, Automated 0.7 %; Lymphocytes # (A) 0.73 X 10*3/uL (0.90-5.00); Lymphocytes % (A) 10.4 %; MCH 30.4 pg (27.0-32.0); MCHC 32.6 g/dL (32.0-37.0); MCV 93.3 fL (80.0-97.0); Mean Platelet Volume 9.5 fL (9.5-12.2); Monocytes # (A) 0.46 X 10*3/uL (0.20-1.00); Monocytes % (A) 6.6 %; NRBC Per 100 WBC 0 /100 WBCS (0.0-0.0); Neutrophils # (A) 5.21 X 10*3/uL (1.80-7.70); Neutrophils % (A) 74.3 %; Platelet Count 190 X 10*3/uL (140-440); RDW 14.4 % (11.5-14.5); WBC 7.01 X 10*3/uL (4.50-10.00)
[2021-06-22 15:35] LABS: African American GFR (CKD) 94.9 (60.0-200.0); Albumin/Globulin Ratio 1.89 (1.60-3.17); Anion Gap 10.7 mmol/L (10.00-18.00); BUN/Creat Ratio 18.82 Ratio (12.00-20.00); Blood Urea Nitrogen 14.7 mg/dL (9.0-27.0); Calcium 9.9 mg/dL (8.7-10.3); Globulin 2.6 g/dL (1.6-3.3); Non-African American GFR(CKD) 81.9 (60.0-200.0); Potassium 4.5 mmol/L (3.5-5.5); Total Bilirubin 0.4 mg/dL (0.30-1.20); Total Protein 7.6 g/dL (6.2-8.2)
[2021-06-22 17:16] LABS: Appearance,Urine Clear (Clear); Bacteria,Urine None Seen /HPF (None Seen); Bilirubin,Urine Negative (Negative); Blood,Urine Negative (Negative); Color,Urine Yellow (Yellow); Ketones,Urine Negative (Negative); Nitrite,Urine Negative (Negative); Specific Gravity,Urine 1.018 (1.001-1.030); Urobilinogen,Urine 0.2 (0.2,1.0)
== END | disposition home or self-care (01) ==
LOC: LABWHC1 09:46
PROVIDERS: ATTEND Psychiatry & Neurology Neurology
DX: G35 Multiple sclerosis (principal); E50.9 Vitamin A deficiency, unspecified
CPT/HCPCS: 36415; 80053; 81001; 82306; 82607; 85025; 87086

== ENCOUNTER → 2022-01-19 | Outpatient (CLI) | payer MEDICARE ==
--- NOTE | 2022-01-19 14:53 | P.PN ---
Subjective Progress Note Date: 01/19/22 Principal diagnosis: left breast stage IA invasive ductal cancer left breast stage IA invasive ductal cancer [id number]+Pr+Her2-G2 Chantel is a 61-year-old white female status post bilateral mastectomies with a left sentinel node biopsy on 08/26/2018. She did not have radiation therapy. She did not have chemotherapy. She is presently on aromasin. She is having hot flashes on the medication. These have improved after being switched from aromidex. She has no complaints related to any lumps masses or nodules on her chest wall. The patient has multiple sclerosis and it was felt that she could not handle radiation therapy if a lumpectomy were performed and that is why she opted for the bilateral mastectomy. She is not complaining of any lesions on her chest wall. She was daignosed with COVID in February of 2021. She has recovered well. Family history: 1. Medical: Breast cancer bilaterally 2. Father: Prostate cancer 2. Paternal uncle colon cancer uncertain of the type Hormonal history: Menarche: 11 Pregnancies: None, hysterectomy at 35 for enlarged uterus did not take her ovaries Menopause: Hysterectomy at 35 control pills: Negative Hormones: Negative Past surgical history: Left ankle Hysterectomy Cholecystectomy Past medical history: 1. Multiple sclerosis 2. Hypertension Social history: Smoke: prior stopped about 13 years ago Alcohol: Negative Drugs: negative - Constitutional Comment: Multiple sclerosis diagnosed in 2002 Hot flashes - EENT Eyes: bilateral blurred vision, denies pain Ears: deny: decreased hearing, tinnitus Ears, nose, mouth and throat: Reports headache - Breasts Breasts: bilateral: as per HPI - Cardiovascular Cardiovascular: Reports high blood pressure - Respiratory Respiratory: Denies cough - Gastrointestinal Comment: Recent colonoscopy awaiting results - Genitourinary (Female) Genitourinary: Denies dysuria, Denies hematuria - Menstruation Menstruation: Reports post hysterectomy - Musculoskeletal Comment: Multiple sclerosis, left-sided weakness - Integumentary Integumentary: Denies pruritus, Denies rash - Neurological Comment: Multiple sclerosis left-sided weakness - Psychiatric Psychiatric: Denies anxiety, Denies depression - Endocrine Endocrine: Reports weight change, Denies fatigue - Hematologic/Lymphatic Comment: Uses Motrin - Allergic/Immunologic Allergic/Immunologic: Reports as per HPI Objective - Constitutional General appearance: Present: cooperative - EENT Eyes: Present: EOMI ENT: Present: hearing grossly normal - Neck Neck: Present: normal ROM - Respiratory Respiratory: bilateral: CTA - Cardiovascular Rhythm: regular Heart sounds: normal: S1, S2 - Integumentary Integumentary: Present: normal turgor - Musculoskeletal Musculoskeletal Comment(s): patient has Multiple Sclerosis, uses a motorized chair for ambulation - Psychiatric Psychiatric: Present: A&O x's 3, appropriate affect, intact judgment & insight - Additional findings Additional findings: Chest wall exam: Inspection: Incisions bilateral clean and dry Right chest wall: Examination does not reveal any palpable mass or lesion Right axilla: No adenopathy of concern Left chest wall: No mass or lesion no evidence of recurrent cancer Left axilla: No adenopathy of concern Assessment and Plan Assessment: Assessment and Plan: Impression: status post bilateral mastectomy left stage IA invasive ductal cancer, patient is presently on Aromasin, she did not have any chemo or radiation therapy History of multiple sclerosis/wheelchair dependent Hypertension Plan: follow up in 6 months for examination follow up with medical oncology CC: Dr. Salvador Additional CC's: Eduardo Salvador
[2022-01-19 15:00] VITALS: BP 158/88; PULSE 60; RESP 18; TEMP 98
== END ==
LOC: WWCWWP 14:11
PROVIDERS: ATTEND Surgery
DX: Z90.13 Acquired absence of bilateral breasts and nipples (principal); Z87.891 Personal history of nicotine dependence

== ENCOUNTER → 2022-07-05 | Outpatient (CLI) | payer MEDICARE ==
[2022-07-06 06:53] LABS: Appearance,Urine Clear (Clear); Bilirubin,Urine Negative (Negative); Blood,Urine Small (Negative); Color,Urine Yellow (Yellow); Ketones,Urine Negative (Negative); Nitrite,Urine Negative (Negative); Specific Gravity,Urine 1.004 (1.001-1.030); Urobilinogen,Urine 0.2 (0.2,1.0)
[2022-07-06 06:56] LABS: Bacteria,Urine 3+ /HPF (None Seen)
== END | disposition home or self-care (01) ==
LOC: LABWHC1 16:24
PROVIDERS: ATTEND Psychiatry & Neurology Neurology
DX: N39.0 Urinary tract infection, site not specified (principal); G35 Multiple sclerosis
CPT/HCPCS: 81001; 87077; 87086; 87186

== ENCOUNTER 2023-01-23 15:10 | Emergency (ER) | payer MEDICARE ==
[2023-01-23 15:29] VITALS: TEMP 98.3
[2023-01-23] MEDS ORDERED: SODIUM CHLORIDE 0.9% 1,000 ML IV STA (16:05)
[2023-01-23 17:03] LABS: Basophils # (A) 0.1 k/uL (0-0.2); Basophils % (A) 1 %; Eosinophils # (A) 0.3 k/uL (0-0.7); Eosinophils % (A) 2 %; HCT 46.8 % (34.0-46.0); HGB 16.3 gm/dL (11.4-16.0); Lymphocytes # (A) 0.7 k/uL (1.0-4.8); Lymphocytes % (A) 5 %; MCH 31.2 pg (25.0-35.0); MCHC 34.8 g/dL (31.0-37.0); MCV 89.6 fL (80.0-100.0); Mean Platelet Volume 7.2; Monocytes # (A) 0.5 k/uL (0-1.0); Monocytes % (A) 4 %; Neutrophils % (A) 87 %; Platelet Count 297 k/uL (150-450); RBC 5.22 m/uL (3.80-5.40); RDW 13.4 % (11.5-15.5); WBC 13.8 k/uL (3.8-10.6)
--- NOTE | 2023-01-23 17:16 | XR ---
EXAMINATION TYPE: XR chest 2V DATE OF EXAM: 01/23/2023 COMPARISON: None INDICATION: Weakness TECHNIQUE: Frontal and lateral views of the chest are obtained. FINDINGS: The heart size is normal. The pulmonary vasculature is normal. The lungs are clear. IMPRESSION: 1. No acute pulmonary process.
[2023-01-23 17:20] LABS: ALT 41 U/L (4-34); AST 44 U/L (14-36); African American GFR (CKD) >90 (>60 ml/min/1.73 sqM); Albumin 4.8 g/dL (3.5-5.0); Alkaline Phosphatase 59 U/L (38-126); Anion Gap 13 mmol/L; Blood Urea Nitrogen 10 mg/dL (7-17); Calcium 9.9 mg/dL (8.4-10.2); Carbon Dioxide 26 mmol/L (22-30); Chloride 102 mmol/L (98-107); Glucose 103 mg/dL (74-99); Magnesium 2.1 mg/dL (1.6-2.3); Non-African American GFR(CKD) >90 (>60 ml/min/1.73 sqM); Sodium 141 mmol/L (137-145); Total Bilirubin 0.7 mg/dL (0.2-1.3); Total Protein 7.6 g/dL (6.3-8.2)
[2023-01-23 17:25] LABS: Potassium 4.9 mmol/L (3.5-5.1)
[2023-01-23 18:58] LABS: Appearance,Urine Clear (Clear); Bilirubin,Urine Negative (Negative); Blood,Urine Negative (Negative); Color,Urine Yellow; Glucose,Urine (UA) Negative (Negative); Ketones,Urine Negative (Negative); Nitrite,Urine Negative (Negative); Protein,Urine Negative (Negative); RBC,Urine 1 /hpf (0-5); Squamous Epithelial Cell,Urine <1 /hpf (0-4); Transitional Epi Cells,Urine 9 /hpf (0-1); Urobilinogen,Urine <2.0 mg/dL (<2.0); WBC,Urine 10 /hpf (0-5)
[2023-01-23 18:59] LABS: Leukocyte Esterase,Urine Small (Negative)
--- NOTE | 2023-01-23 19:03 | ED ---
General Adult HPI - General Chief complaint: Recheck/Abnormal Lab/Rx Stated complaint: Abd Pain Source: patient Mode of arrival: wheelchair - History of Present Illness Initial comments: 62-year-old female with past history of hypertension, fibromyalgia, MS who presents emergency department stating that she doesn't feel well. States that she has had some high blood pressure at home. Patient does take metoprolol at home and did take her medications. She admits to some nausea without vomiting. No abdominal pain. No chest pain or shortness of breath. No other alleviating, precipitating or modifying factors - Related Data Home Medications Medication Instructions Recorded Confirmed Ergocalciferol [Vitamin D2] 50,000 unit PO PECK 12/31/14 01/19/22 Ibuprofen [Motrin] 800 mg PO TID 12/31/14 01/19/22 traMADol HCl [Ultram] 50 mg PO TID PRN 12/31/14 01/19/22 Baclofen 10 mg PO TID 05/22/18 01/19/22 Calcium Citrate 500 mg PO DAILY 05/22/18 01/19/22 Gabapentin [Neurontin] 100 mg PO QID 05/22/18 01/19/22 Metoprolol Tartrate [Lopressor] 25 mg PO BID 05/22/18 01/19/22 Nystatin 100,000 Unit/gm Oint 1 applic TOPICAL BID PRN 05/22/18 01/19/22 [Mycostatin Oint] Wheat Dextrin [Benefiber] 5 ml PO DAILY 05/22/18 01/19/22 Alendronate Sodium [Fosamax] 70 mg PO PECK 06/26/18 01/19/22 Cannabidiol (Cbd) [Epidiolex] 6 drops MUCOUS MEM HS PRN 06/26/18 01/19/22 Multivitamin [Multivitamins Adult 2 tab PO DAILY 06/26/18 01/19/22 Gummies] Meclizine HCl 12.5 mg PO DAILY PRN 07/31/18 01/19/22 Pantoprazole Sodium [Protonix] 20 mg PO DAILY 07/31/18 01/19/22 Triamcinolone 0.5% Cream [Kenalog 1 applic TOPICAL DAILY PRN 07/31/18 01/19/22 0.5% Cream] modafiniL [Provigil] 200 mg PO DAILY 07/31/18 01/19/22 Inulin/Chromium Picolinate [Fiber 2 tab PO DAILY 08/20/18 01/19/22 Gummies Chew] Exemestane [Aromasin] 25 mg PO DAILY 11/11/20 01/19/22 Ofatumumab [Kesimpta Pen] 0 mg SQ ONCE 01/19/22 01/19/22 Allergies Allergy/AdvReac Type Severity Reaction Status Date / Time No Known Allergies Allergy Verified 01/23/23 15:15 Review of Systems ROS Statement: Those systems with pertinent positive or pertinent negative responses have been documented in the HPI. ROS Other: All systems not noted in ROS Statement are negative. Past Medical History Past Medical History: Cancer, Diabetes Mellitus, Fibromyalgia, GERD/Reflux, Hypertension, Musculoskeletal Disorder Additional Past Medical History / Comment(s): MS; Occ Palpitations; Edema nataliia feet; breast cancer History of Any Multi-Drug Resistant Organisms: None Reported Past Surgical History: Cholecystectomy, Hysterectomy, Orthopedic Surgery Additional Past Surgical History / Comment(s): ORIF left ankle, Colonoscopies, Natali[facility] Breast Biopsies; Needle Localizations w/ Nataliia breast biopsies 08/05/18. Bilateral breast mastecomy 08/26/18 Past Anesthesia/Blood Transfusion Reactions: Previous Problems w/ Anesthesia, Family History of Problems w/ Anesthesia Additional Past Anesthesia/Blood Transfusion Reaction / Comment(s): Severe Sore Throat for sev days after 08/05/18 surg. Sister has PONV. Past Psychological History: No Psychological Hx Reported Smoking Status: Never smoker Past Alcohol Use History: None Reported Past Drug Use History: Marijuana - Past Family History Mother Family Medical History: Cancer Additional Family Medical History / Comment(s): breast Father Family Medical History: Cancer Additional Family Medical History / Comment(s): prostate General Exam General appearance: alert, in no apparent distress Head exam: Present: atraumatic, normocephalic, normal inspection Eye exam: Present: normal appearance, PERRL, EOMI. Absent: scleral icterus, co njunctival injection, periorbital swelling ENT exam: Present: normal exam, mucous membranes moist Neck exam: Present: normal inspection. Absent: tenderness, meningismus, lymphadenopathy Respiratory exam: Present: normal lung sounds bilaterally. Absent: respiratory distress, wheezes, rales, rhonchi, stridor Cardiovascular Exam: Present: regular rate, normal rhythm, normal heart sounds. Absent: systolic murmur, diastolic murmur, rubs, gallop, clicks GI/Abdominal exam: Present: soft, normal bowel sounds. Absent: distended, tenderness, guarding, rebound, rigid Extremities exam: Present: normal inspection, full ROM, normal capillary refill. Absent: tenderness, pedal edema, joint swelling, calf tenderness Back exam: Present: normal inspection Neurological exam: Present: alert, oriented X3, CN II-XII intact Psychiatric exam: Present: normal affect, normal mood Skin exam: Present: warm, dry, intact, normal color. Absent: rash Course Vital Signs 01/23/23 01/23/23 01/23/23 15:11 16:00 16:30 Temperature 98.3 F Pulse Rate 83 68 73 Respiratory 16 18 21 Rate Blood Pressure 170/84 157/82 154/68 O2 Sat by Pulse 98 97 98 Oximetry 01/23/23 01/23/23 01/23/23 17:00 17:30 18:00 Temperature Pulse Rate 67 70 67 Respiratory 17 19 18 Rate Blood Pressure 146/80 148/72 134/65 O2 Sat by Pulse 97 97 97 Oximetry 01/23/23 01/23/23 18:30 19:00 Temperature Pulse Rate 68 68 Respiratory 21 18 Rate Blood Pressure 148/70 140/59 O2 Sat by Pulse 99 99 Oximetry Medical Decision Making - Medical Decision Making Was pt. sent in by a medical professional or institution (MANJEET Leonard, SENIOR TRIAL ATTORNEY, urgent care, hospital, or detention...) When possible be specific @ -No Did you speak to anyone other than the patient for history (EMS, parent, family, police, friend...)? What history was obtained from this source @ -No Did you review nursing and triage notes (agree or disagree)? Why? @ -I reviewed and agree with nursing and triage notes Were old charts reviewed (outside hosp., previous admission, EMS record, old EKG, old radiological studies, urgent care reports/EKG's, detention records)? Report findings @ -No old charts were reviewed Differential Diagnosis (chest pain, altered mental status, abdominal pain women, abdominal pain men, vaginal bleeding, weakness, fever, dyspnea, syncope, headache, dizziness, GI bleed, back pain, seizure, CVA, palpatations, mental health, musculoskeletal)? @ -Differential Weakness: Hypoglycemia, shock, sepsis, hyponatremia, anemia, infection, WI, ETOH, adverse medicine reaction, overdose, stroke, this is not meant to be an all-inclusive list. EKG interpreted by me (3pts min.). @ -yes and demonstrate sinus rhythm with a rate of 76. Pr interval 161. QRS 93. QTC of 44. No acute ST segment elevations or depressions X-rays interpreted by me (1pt min.). @ -yes demonstrates no acute process CT interpreted by me (1pt min.). @ -None done U/S interpreted by me (1pt. min.). @ -None done What testing was considered but not performed or refused? (CT, X-rays, U/S, labs)? Why? @ -None What meds were considered but not given or refused? Why? @ -None Did you discuss the management of the patient with other professionals (professionals i.e. , PA, SENIOR TRIAL ATTORNEY, lab, RT, psych nurse, forensic social worker, cabin supervisor, teacher, control systems drafting officer, major case detective)? Give summary @ -No Was smoking cessation discussed for >3mins.? @ -No Was critical care preformed (if so, how long)? @ -No Were there social determinants of health that impacted care today? How? (Homelessness, low income, unemployed, alcoholism, drug addiction, transportation, low edu. Level, literacy, decrease access to med. care, penitentiary, rehab)? @ -No Was there de-escalation of care discussed even if they declined (Discuss DNR or withdrawal of care, Hospice)? DNR status @ -No What co-morbidities impacted this encounter? (DM, HTN, Smoking, COPD, CAD, Cancer, CVA, ARF, Chemo, Hep., AIDS, mental health diagnosis, sleep apnea, morbid obesity)? @ -MS, fibromyalgia Was patient admitted / discharged? Hospital course, mention meds given and route , prescriptions, significant lab abnormalities, going to OR and other pertinent info. @ -Discharge. Upon arrival patient seen and evaluated. IV is established. Laboratory studies are conducted. Patient is given fluid hydration. Results of the laboratory studies are discussed with the patient. Her blood pressure does improve without any intervention. She'll be discharged home and instructed to keep a blood pressure log. Follow-up with her doctor. Return for any new or worsening symptoms. Patient discharged stable condition Undiagnosed new problem with uncertain prognosis? @ -No Drug Therapy requiring intensive monitoring for toxicity (Heparin, Nitro, Insulin, Cardizem)? @ -No Were any procedures done? @ -No Diagnosis/symptom? @ -accelerated hypertension Acute, or Chronic, or Acute on Chronic? @ -acute Uncomplicated (without systemic symptoms) or Complicated (systemic symptoms)? @ -complicated Side effects of treatment? @ -No Exacerbation, Progression, or Severe Exacerbation? @ -No Poses a threat to life or bodily function? How? (Chest pain, [place], WI, pneumonia, PE, COPD, DKA, ARF, appy, cholecystitis, CVA, Diverticulitis, Homicidal, Suicidal, threat to staff... and all critical care pts) @ -No - Lab Data Result diagrams: 01/23/23 16:17 01/23/23 16:17 Lab Results 01/23/23 01/23/23 01/23/23 Range/Units 16:17 16:17 16:17 WBC 13.8 H (3.8-10.6) k/uL RBC 5.22 (3.80-5.40) m/uL Hgb 16.3 H (11.4-16.0) gm/dL Hct 46.8 H (34.0-46.0) % MCV 89.6 (80.0-100.0) fL MCH 31.2 (25.0-35.0) pg MCHC 34.8 (31.0-37.0) g/dL RDW 13.4 (11.5-15.5) % Plt Count 297 (150-450) k/uL MPV 7.2 Neutrophils % 87 % Lymphocytes % 5 % Monocytes % 4 % Eosinophils % 2 % Basophils % 1 % Neutrophils # 12.0 H (1.3-7.7) k/uL Lymphocytes # 0.7 L (1.0-4.8) k/uL Monocytes # 0.5 (0-1.0) k/uL Eosinophils # 0.3 (0-0.7) k/uL Basophils # 0.1 (0-0.2) k/uL PT 11.0 (10.0-12.5) sec INR 1.0 (<1.2) APTT 18.9 L (22.0-30.0) sec Sodium (137-145) mmol/L Potassium (3.5-5.1) mmol/L Chloride (98-107) mmol/L Carbon Dioxide (22-30) mmol/L Anion Gap mmol/L BUN (7-17) mg/dL Creatinine (0.52-1.04) mg/dL Est GFR (CKD-EPI)AfAm (>60 ml/min/1.73 sqM) Est GFR (CKD-EPI)NonAf (>60 ml/min/1.73 sqM) Glucose (74-99) mg/dL Plasma Lactic Acid Buzz (0.7-2.0) mmol/L Calcium (8.4-10.2) mg/dL Magnesium (1.6-2.3) mg/dL Total Bilirubin (0.2-1.3) mg/dL AST (14-36) U/L ALT (4-34) U/L Alkaline Phosphatase (38-126) U/L Troponin I (0.000-0.034) ng/mL Total Protein (6.3-8.2) g/dL Albumin (3.5-5.0) g/dL TSH (0.465-4.680) mIU/L Urine Color Yellow Urine Appearance Clear (Clear) Urine pH 6.0 (5.0-8.0) Ur Specific [place] 1.010 (1.001-1.035) Urine Protein Negative (Negative) Urine Glucose (UA) Negative (Negative) Urine Ketones Negative (Negative) Urine Blood Negative (Negative) Urine Nitrite Negative (Negative) Urine Bilirubin Negative (Negative) Urine Urobilinogen <2.0 (<2.0) mg/dL Ur Leukocyte Esterase Small H (Negative) Urine RBC 1 (0-5) /hpf Urine WBC 10 H (0-5) /hpf Urine WBC Clumps Rare H (None) /hpf Ur Squamous Epith Cells <1 (0-4) /hpf Ur Transition Epith Cell 9 H (0-1) /hpf 01/23/23 01/23/23 01/23/23 Range/Units 16:17 16:17 16:17 WBC (3.8-10.6) k/uL RBC (3.80-5.40) m/uL Hgb (11.4-16.0) gm/dL Hct (34.0-46.0) % MCV (80.0-100.0) fL MCH (25.0-35.0) pg MCHC (31.0-37.0) g/dL RDW (11.5-15.5) % Plt Count (150-450) k/uL MPV Neutrophils % % Lymphocytes % % Monocytes % % Eosinophils % % Basophils % % Neutrophils # (1.3-7.7) k/uL Lymphocytes # (1.0-4.8) k/uL Monocytes # (0-1.0) k/uL Eosinophils # (0-0.7) k/uL Basophils # (0-0.2) k/uL PT (10.0-12.5) sec INR (<1.2) APTT (22.0-30.0) sec Sodium 141 (137-145) mmol/L Potassium 4.9 (3.5-5.1) mmol/L Chloride 102 (98-107) mmol/L Carbon Dioxide 26 (22-30) mmol/L Anion Gap 13 mmol/L BUN 10 (7-17) mg/dL Creatinine 0.60 (0.52-1.04) mg/dL Est GFR (CKD-EPI)AfAm >90 (>60 ml/min/1.73 sqM) Est GFR (CKD-EPI)NonAf >90 (>60 ml/min/1.73 sqM) Glucose 103 H (74-99) mg/dL Plasma Lactic Acid Buzz 1.7 (0.7-2.0) mmol/L Calcium 9.9 (8.4-10.2) mg/dL Magnesium 2.1 (1.6-2.3) mg/dL Total Bilirubin 0.7 (0.2-1.3) mg/dL AST 44 H (14-36) U/L ALT 41 H (4-34) U/L Alkaline Phosphatase 59 (38-126) U/L Troponin I <0.012 (0.000-0.034) ng/mL Total Protein 7.6 (6.3-8.2) g/dL Albumin 4.8 (3.5-5.0) g/dL TSH 2.330 (0.465-4.680) mIU/L Urine Color Urine Appearance (Clear) Urine pH (5.0-8.0) Ur Specific [place] (1.001-1.035) Urine Protein (Negative) Urine Glucose (UA) (Negative) Urine Ketones (Negative) Urine Blood (Negative) Urine Nitrite (Negative) Urine Bilirubin (Negative) Urine Urobilinogen (<2.0) mg/dL Ur Leukocyte Esterase (Negative) Urine RBC (0-5) /hpf Urine WBC (0-5) /hpf Urine WBC Clumps (None) /hpf Ur Squamous Epith Cells (0-4) /hpf Ur Transition Epith Cell (0-1) /hpf Disposition Clinical Impression: Hypertension, Leukocytosis Disposition: HOME SELF-CARE Condition: Stable Instructions (If sedation given, give patient instructions): Weakness (ED) Additional Instructions: Please follow-up with your primary care doctor for blood pressure recheck. Return to the emergency room for any new or worsening symptoms Is patient prescribed a controlled substance at d/c from ED?: No Referrals: Eduardo Salvador MD [Primary Care Provider] - 1-2 days Time of Disposition: 19:40
[2023-01-23 19:06] LABS: Partial Thromboplastin Time 18.9 sec (22.0-30.0)
[2023-01-23 19:31] VITALS: BP 140/59; PULSE 68; RESP 18
== END 2023-01-23 20:11 | disposition home or self-care (01) ==
LOC: EC 15:10
DX: I10 Essential (primary) hypertension (principal); D72.829 Elevated white blood cell count, unspecified; I45.10 Unspecified right bundle-branch block; E11.9 Type 2 diabetes mellitus without complications; K21.9 Gastro-esophageal reflux disease without esophagitis; F12.90 Cannabis use, unspecified, uncomplicated; Z79.899 Other long term (current) drug therapy
CPT/HCPCS: 36415; 71046; 80053; 81001; 83605; 83735; 84443; 84484; 85025; 85610; 85730; 93005; 96360; 99284

== ENCOUNTER → 2023-08-01 | Outpatient (CLI) | payer MEDICARE ==
--- NOTE | 2023-08-01 13:39 | P.PN ---
Subjective Progress Note Date: 08/01/23 Principal diagnosis: left breast stage IA invasive ductal cancer [id number] 08-01-23 Principal diagnosis: left breast stage IA invasive ductal cancer [id number] Chantel is a 62-year-old white female status post bilateral mastectomies with a left sentinel node biopsy on 08/26/2018. She did not have radiation therapy. She did not have chemotherapy. She is presently on aromasin. She is having hot flashes on the medication. These have improved after being switched from aromidex. She was recently seen by Dr. Cool and may consider taking her off aromasin. She has no complaints related to any lumps masses or nodules on her chest wall. The patient has multiple sclerosis and it was felt that she could not handle radiation therapy if a lumpectomy were performed and that is why she opted for the bilateral mastectomy. She is not complaining of any lesions on her chest wall. She was diagnosed with COVID in February of 2021. She has recovered well. Family history: 1. Medical: Breast cancer bilaterally 2. Father: Prostate cancer 2. Paternal uncle colon cancer uncertain of the type Hormonal history: Menarche: 11 Pregnancies: None, hysterectomy at 35 for enlarged uterus did not take her ovaries Menopause: Hysterectomy at 35 control pills: Negative Hormones: Negative Past surgical history: Left ankle Hysterectomy Cholecystectomy Past medical history: 1. Multiple sclerosis 2. Hypertension Social history: Smoke: prior stopped about 13 years ago Alcohol: Negative Drugs: negative - Constitutional Comment: Multiple sclerosis diagnosed in 2002 Hot flashes - EENT Eyes: bilateral blurred vision, denies pain Ears: deny: decreased hearing, tinnitus Ears, nose, mouth and throat: Reports headache - Breasts Breasts: bilateral: as per HPI - Cardiovascular Cardiovascular: Reports high blood pressure - Respiratory Respiratory: Denies cough - Gastrointestinal Comment: Recent colonoscopy awaiting results - Genitourinary (Female) Genitourinary: Denies dysuria, Denies hematuria - Menstruation Menstruation: Reports post hysterectomy - Musculoskeletal Comment: Multiple sclerosis, left-sided weakness - Integumentary Integumentary: Denies pruritus, Denies rash - Neurological Comment: Multiple sclerosis left-sided weakness - Psychiatric Psychiatric: Denies anxiety, Denies depression - Endocrine Endocrine: Reports weight change, Denies fatigue - Hematologic/Lymphatic Comment: Uses Motrin - Allergic/Immunologic Allergic/Immunologic: Reports as per HPI Objective - Constitutional General appearance: Present: cooperative - EENT Eyes: Present: EOMI ENT: Present: hearing grossly normal - Neck Neck: Present: normal ROM - Respiratory Respiratory: bilateral: CTA - Cardiovascular Heart sounds: normal: S1, S2 - Integumentary Integumentary: Present: normal turgor - Psychiatric Psychiatric: Present: A&O x's 3, appropriate affect, intact judgment & insight - Additional findings Additional findings: Inspection: Incisions bilateral clean and dry Right chest wall: Examination does not reveal any palpable mass or lesion Right axilla: No adenopathy of concern Left chest wall: No mass or lesion no evidence of recurrent cancer Left axilla: No adenopathy of concern Assessment and Plan Assessment: Impression: status post bilateral mastectomy left stage IA invasive ductal cancer, patient is presently on Aromasin, she did not have any chemo or radiation therapy History of multiple sclerosis/wheelchair dependent Hypertension Plan: follow up in 6 months for examination follow up with medical oncology CC: Dr. Salvador
[2023-08-01 14:01] VITALS: BP 139/88; PULSE 59; RESP 17; TEMP 97.9
== END ==
LOC: WWCWWP 12:43
PROVIDERS: ATTEND Surgery
DX: C50.912 Malignant neoplasm of unspecified site of left female breast (principal); I10 Essential (primary) hypertension; G35 Multiple sclerosis; Z90.13 Acquired absence of bilateral breasts and nipples

== ENCOUNTER → 2024-01-31 | Outpatient (CLI) | payer MEDICARE ==
[2024-01-31 12:59] VITALS: BP 160/82; PULSE 72; RESP 17; TEMP 97.8
--- NOTE | 2024-01-31 13:07 | P.PN ---
Subjective Progress Note Date: 01/31/24 Principal diagnosis: bilateral mastectomies 01-31-24 Principal diagnosis: left breast stage IA invasive ductal cancer [id number] 01-31-24 Principal diagnosis: left breast stage IA invasive ductal cancer [id number] Chantel is a 63-year-old white female status post bilateral mastectomies with a left sentinel node biopsy on 08/26/2018. She did not have radiation therapy. She did not have chemotherapy. She is presently on aromasin. She is having hot flashes on the medication. These have improved after being switched from aromidex. She was recently seen by Dr. Cool and has stopped the aromisin She has no complaints related to any lumps masses or nodules on her chest wall. The patient has multiple sclerosis and it was felt that she could not handle radiation therapy if a lumpectomy were performed and that is why she opted for the bilateral mastectomy. She is not complaining of any lesions on her chest wall. She was diagnosed with COVID in February of 2021. She has recovered well. Family history: 1. Medical: Breast cancer bilaterally 2. Father: Prostate cancer 2. Paternal uncle colon cancer uncertain of the type Hormonal history: Menarche: 11 Pregnancies: None, hysterectomy at 35 for enlarged uterus did not take her ovaries Menopause: Hysterectomy at 35 control pills: Negative Hormones: Negative Past surgical history: Left ankle Hysterectomy Cholecystectomy bilateral mastectomy Past medical history: 1. Multiple sclerosis 2. Hypertension Social history: Smoke: prior stopped about 13 years ago Alcohol: Negative Drugs: negative - Constitutional Comment: Multiple sclerosis diagnosed in 2002 Hot flashes - EENT Eyes: bilateral blurred vision, denies pain Ears: deny: decreased hearing, tinnitus Ears, nose, mouth and throat: Reports headache - Breasts Breasts: bilateral: as per HPI - Cardiovascular Cardiovascular: Reports high blood pressure - Respiratory Respiratory: Denies cough - Gastrointestinal Comment: Recent colonoscopy awaiting results - Genitourinary (Female) Genitourinary: Denies dysuria, Denies hematuria - Menstruation Menstruation: Reports post hysterectomy - Musculoskeletal Comment: Multiple sclerosis, left-sided weakness - Integumentary Integumentary: Denies pruritus, Denies rash - Neurological Comment: Multiple sclerosis left-sided weakness - Psychiatric Psychiatric: Denies anxiety, Denies depression - Endocrine Endocrine: Reports weight change, Denies fatigue - Hematologic/Lymphatic Comment: Uses Motrin - Allergic/Immunologic Allergic/Immunologic: Reports as per HPI Objective - Vital Signs Vital signs: Vital Signs Temp 97.8 F 01/31/24 12:55 Pulse 72 01/31/24 12:55 Resp 17 01/31/24 12:55 BP 160/82 01/31/24 12:55 Pulse Ox 99 01/31/24 12:55 FiO2 Intake & Output 01/30/24 01/31/24 01/31/24 18:59 06:59 18:59 Weight 118.841 kg - Constitutional General appearance: Present: cooperative - EENT Eyes: Present: EOMI ENT: Present: hearing grossly normal - Neck Neck: Present: normal ROM - Respiratory Respiratory: bilateral: CTA - Cardiovascular Heart sounds: normal: S1, S2 - Integumentary Integumentary: Present: normal turgor - Musculoskeletal Musculoskeletal: Present: gait normal - Psychiatric Psychiatric: Present: A&O x's 3, appropriate affect, intact judgment & insight - Additional findings Additional findings: Inspection: Incisions bilateral clean and dry Right chest wall: Examination does not reveal any palpable mass or lesion Right axilla: No adenopathy of concern Left chest wall: No mass or lesion no evidence of recurrent cancer Left axilla: No adenopathy of concern Assessment and Plan Assessment: Impression: status post bilateral mastectomy left stage IA invasive ductal cancer, patient discontinued on Aromasin, she did not have any chemo or radiation therapy History of multiple sclerosis/wheelchair dependent Hypertension Plan: follow up in 9 months for exam does not want to come in the winter, difficult to use wheel chair in the winter follow up with medical oncology CC: Dr. Salvador
== END ==
LOC: WWCWWP 12:38
PROVIDERS: ATTEND Surgery
DX: C50.912 Malignant neoplasm of unspecified site of left female breast (principal); G35 Multiple sclerosis; I10 Essential (primary) hypertension; Z17.21 Progesterone receptor positive status; Z17.0 Estrogen receptor positive status [ER+]; Z80.3 Family history of malignant neoplasm of breast; Z90.13 Acquired absence of bilateral breasts and nipples; Z79.899 Other long term (current) drug therapy; Z87.891 Personal history of nicotine dependence